=== PATIENT | female | born 1950 | race Caucasian/White ===

== ENCOUNTER 2019-05-07 06:35 | Emergency (ER) | payer SELFPAY ==
[~2019-05-07] VITALS: Ht 157.5 cm; Wt 45.4 kg
--- OUTSIDE RECORDS SUMMARY | ~2019-05-07 | XMS | Clinical Summary ---
Demographics + + + | Address | [address] | | | [place] [address] | + + + | Home Phone | | + + + | Preferred Language | Unknown | + + + | Marital Status | Single | + + + | Oriental Orthodox Affiliation | CAT | + + + | Race | White | + + + | Ethnic Group | Not or | + + + Author + + + | Author | NON REVENUE LOCATIONS | + + + | Organization | NON REVENUE LOCATIONS | + + + | Address | Unknown | + + + | Phone | Unavailable | + + + Support + + + + + | Name | Relationship | Address | Phone | + + + + + | Esperanza Garcia | ECON | [address] | | | | | [place] [address] | | + + + + + | Alejandro Nance | ECON | Unknown | | + + + + + Care Team Providers + +------+ + | Care Refinery Process Engineer Name | Role | Phone | + +------+ + | Emmanuel Llanos MD | PCP | | + +------+ + Source Comments BETSY is fully live on both [facility] and [facility] Allergies Not on File Medications + + + +---------+------+------+-------+ | Medication | Sig | Dispensed | Refills | Star | End | Statu | | | | | | t | Date | s | | | | | | Date | | | + + + +---------+------+------+-------+ | methadone 10 mg | take 2 tablets by | | 0 | 07/1 | | Activ | | oral tablet | mouth every 6 hours | | | 6/20 | | e | | | if needed | | | 18 | | | + + + +---------+------+------+-------+ | oxyCODONE | take 1 tablet by | | 0 | 07/1 | | Activ | | (immediate release) | mouth every 6 hours | | | 1/20 | | e | | 15 mg oral tablet | if needed | | | 18 | | | + + + +---------+------+------+-------+ | HYDROmorphone 4 mg | take 1/2 twice a day | | 0 | 07/1 | | Activ | | oral tablet | IN LATE AFTERNOON | | | 1/20 | | e | | | | | | 18 | | | + + + +---------+------+------+-------+ | atorvastatin 40 mg | Take by mouth. | | 0 | | | Activ | | oral tablet | | | | | | e | + + + +---------+------+------+-------+ | gabapentin 800 mg | Take by mouth. | | 0 | | | Activ | | oral tablet | | | | | | e | + + + +---------+------+------+-------+ | montelukast 10 mg | Take by mouth. | | 0 | | | Activ | | oral tablet | | | | | | e | + + + +---------+------+------+-------+ | Nebivolol 10 mg | Take by mouth. | | 0 | | | Activ | | oral tablet | | | | | | e | + + + +---------+------+------+-------+ | nitroglycerin 0.4 | Place under tongue. | | 0 | | | Activ | | mg sublingual | | | | | | e | | tablet, sublingual | | | | | | | + + + +---------+------+------+-------+ | albuterol 90 | Inhale by mouth. | | 0 | | | Activ | | mcg/actuation | | | | | | e | | inhalation HFA | | | | | | | | aerosol inhaler | | | | | | | + + + +---------+------+------+-------+ Active Problems Not on file Social History + +-------+ +--------+------+ | Tobacco Use | Types | Packs/Day | Years | Date | | | | | Used | | + +-------+ +--------+------+ | Former Smoker | | | | | + +-------+ +--------+------+ + +---+---+---+ | Smokeless Tobacco: | | | | | Never Used | | | | + +---+---+---+ + + + | Sex Assigned at | Date Recorded | | | | + + + | Not on file | | + + + + + + + | Job Start Date | Occupation | Industry | + + + + | Not on file | Not on file | Not on file | + + + + + + + + | Travel History | Travel Start | Travel End | + + + + + + | No recent travel history available. | + + Last Filed Vital Signs + + + + + | Vital Sign | Reading | Time Taken | Comments | + + + + + | Blood Pressure | - | - | | + + + + + | Pulse | - | - | | + + + + + | Temperature | - | - | | + + + + + | Respiratory Rate | - | - | | + + + + + | Oxygen Saturation | - | - | | + + + + + | Inhaled Oxygen | - | - | | | Concentration | | | | + + + + + | Weight | 46.3 kg (102 lb) | 01/26/2018 1:41 PM | | | | | PDT | | + + + + + | Height | 158.8 cm (5' 2.5") | 01/26/2018 1:41 PM | | | | | PDT | | + + + + + | Body Mass Index | 18.36 | 01/26/2018 1:41 PM | | | | | PDT | | + + + + + Plan of Treatment + + + + + | Health Maintenance | Due Date | Last Done | Comments | + + + + + | Pneumococcal | | 04/17/2015 | | | vaccination (2 of 2 | 7 | | | | - PPSV23) | | | | + + + + + | Influenza (Flu) | | | | | vaccination (#1) | 9 | | | + + + + + Results Not on filefrom Last 3 Months
--- OUTSIDE RECORDS SUMMARY | ~2019-05-07 | XMS | Clinical Summary ---
Demographics + + + | Address | [address] | | | [place] [address] | + + + | Home Phone | | + + + | Preferred Language | Unknown | + + + | Marital Status | Unknown | + + + | Christian Affiliation | Unknown | + + + | Race | Unknown | + + + | Ethnic Group | Unknown | + + + Author + + + | Author | [facility] | | | and [place] | + + + | Organization | [facility] | | | and [place] | + + + | Address | Unknown | + + + | Phone | Unavailable | + + + Support + + +---------+ + | Name | Relationship | Address | Phone | + + +---------+ + | Konstantin Edwards | ECON | Unknown | | + + +---------+ + Care Team Providers + +------+ + | Care Area Director Of Home Health Sales Name | Role | Phone | + +------+ + | Davian Strong DO | PCP | | + +------+ + Allergies + + + + + + | Active Allergy | Reactions | Severity | Noted | Comments | | | | | Date | | + + + + + + | Penicillins | | High | 03/26/20 | | | | | | 18 | | + + + + + + | Sulfa Antibiotics | | High | 03/26/20 | | | | | | 18 | | + + + + + + Medications + + + +---------+------+------+-------+ | Medication | Sig | Dispensed | Refills | Star | End | Statu | | | | | | t | Date | s | | | | | | Date | | | + + + +---------+------+------+-------+ | guanFACINE (TENEX) | Take 1 mg by mouth | | 0 | | | Activ | | 1 mg tablet | nightly. | | | | | e | + + + +---------+------+------+-------+ | spironolactone | Take 25 mg by mouth | | 0 | | | Activ | | (ALDACTONE) 25 mg | Daily. | | | | | e | | tablet | | | | | | | + + + +---------+------+------+-------+ | | Take 1 tablet by | | 0 | | | Activ | | irbesartan-hydrochlo | mouth Daily. | | | | | e | | rothiazide (AVALIDE) | | | | | | | | 300-12.5 MG per | | | | | | | | tablet | | | | | | | + + + +---------+------+------+-------+ | nebivolol | Take 10 mg by mouth | | 0 | | | Activ | | (BYSTOLIC) 10 mg | Daily. | | | | | e | | tablet | | | | | | | + + + +---------+------+------+-------+ | verapamil (CALAN | Take 240 mg by mouth | | 0 | | | Activ | | SR) 240 mg SR tablet | 2 times daily. | | | | | e | + + + +---------+------+------+-------+ | sucralfate | Take 1 g by mouth | | 0 | | | Activ | | (CARAFATE) 1 g | nightly. | | | | | e | | tablet | | | | | | | + + + +---------+------+------+-------+ | colestipol | Take 1 g by mouth 2 | | 0 | | | Activ | | (COLESTID) 1 g | times daily. | | | | | e | | tablet | | | | | | | + + + +---------+------+------+-------+ | estradiol | Place 1 patch onto | | 0 | | | Activ | | (CLIMARA) 0.05 mg/24 | the skin Once a | | | | | e | | hr | week. | | | | | | + + + +---------+------+------+-------+ | atorvaSTATin | Take 40 mg by mouth | | 0 | | | Activ | | (LIPITOR) 40 mg | nightly. | | | | | e | | tablet | | | | | | | + + + +---------+------+------+-------+ | gabapentin | Take 800 mg by mouth | | 0 | | | Activ | | (NEURONTIN) 800 MG | EVERY 4 TO 6 HOURS | | | | | e | | tablet | NEEDED. | | | | | | + + + +---------+------+------+-------+ | nitroglycerin | Place 0.4 mg under | | 0 | | | Activ | | (NITROSTAT) 0.4 mg | the tongue every 5 | | | | | e | | SL tablet | minutes as needed | | | | | | | | for Chest pain. | | | | | | + + + +---------+------+------+-------+ | Albuterol Sulfate | Inhale 200 puffs | | 0 | | | Activ | | (VENTOLIN HFA IN) | into the lungs every | | | | | e | | | 4 hours as needed. | | | | | | + + + +---------+------+------+-------+ | aspirin 81 mg EC | Take 81 mg by mouth | | 0 | | | Activ | | tablet | Daily. | | | | | e | + + + +---------+------+------+-------+ | CALCIUM CITRATE PO | Take by mouth. | | 0 | | | Activ | | | | | | | | e | + + + +---------+------+------+-------+ | aluminum | Take 15 mLs by mouth | | 0 | | | Activ | | hydroxide-magnesium | 4 times daily as | | | | | e | | carbonate (GAVISCON) | needed. | | | | | | | 95-358 MG/15ML SUSP | | | | | | | + + + +---------+------+------+-------+ | cholecalciferol | Take 5,000 Units by | | 0 | | | Activ | | (VITAMIN D-3) 5000 | mouth Daily. | | | | | e | | units TABS | | | | | | | + + + +---------+------+------+-------+ | naloxone (NARCAN) | 1 spray by Nasal | 2 each | 1 | 05/1 | | Activ | | 4 mg/nasal | route as needed for | | | 6/20 | | e | | sprayIndications: | Decreased | | | 19 | | | | long-term current | Responsiveness (May | | | | | | | use of opiate | repeat with second | | | | | | | analgesic | device into other | | | | | | | | nostril after 2 | | | | | | | | minutes). | | | | | | + + + +---------+------+------+-------+ | oxyCODONE | Take 1 tablet by | 56 | 0 | 08/2 | | Activ | | (ROXICODONE) 15 mg | mouth every 6 hours | tablet | | 6/20 | | e | | immediate release | as needed for Pain. | | | 19 | | | | tabletIndications: | | | | | | | | Failed back | | | | | | | | syndrome, lumbar, | | | | | | | | Failed neck | | | | | | | | syndrome, bed bug exterminator | | | | | | | | current use of | | | | | | | | opiate analgesic | | | | | | | + + + +---------+------+------+-------+ | methadone 10 mg | Take 2 tablets by | 112 | 0 | 08/2 | | Activ | | tabletIndications: | mouth 4 times daily. | tablet | | 6/20 | | e | | Failed back | | | | 19 | | | | syndrome, lumbar, | | | | | | | | Failed neck | | | | | | | | syndrome, long-term | | | | | | | | current use of | | | | | | | | opiate analgesic | | | | | | | + + + +---------+------+------+-------+ Active Problems + + | Patient Care Coordination Note | + + | 01/13/2019: Needs UDS prior to next refill. Opioid use agreement through Dr. 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/2018 | | stable angina pectoris | | + + + | Failed neck syndrome | 03/26/2018 | + + + | long-term current use of opiate analgesic | 03/26/2018 | + + + | Mixed hyperlipidemia | 03/26/2018 | + + + | History of tobacco use | 03/26/2018 | + + + | Underweight due to inadequate caloric intake | 03/26/2018 | + + + Encounters +--------+ + + + + | Date | Type | Specialty | Care Team | Description | +--------+ + + + + | 02/28/ | Office | Primary Care | Lea Mack | Failed back | | 2018 | Visit | | MD Tram | syndrome, lumbar; | | | | | | Failed neck | | | | | | syndrome; long-term | | | | | | current use of | | | | | | opiate analgesic | +--------+ + + + + | 02/24/ | Orders Only | Primary Care | Lea Mack | | | 2018 | | | MD Tram | | +--------+ + + + + | 02/16/ | Telephone | Primary Care | Davian Strong, | Appointment (apt | | 2018 | | | DO | with Dr mack) | +--------+ + + + + | 02/16/ | Telephone | Primary Care | Davian Strong, | | | 2018 | | | DO | | +--------+ + + + + | 02/14/ | Refill | Primary Care | Davian Strong, | Medication Refill; | | 2018 | | | DO | Medication Refill; | | | | | | Medication Refill | +--------+ + + + + from Last 3 Months Immunizations + + + + | Name | Dates Previously Given | Next Due | + + + + | HEP A/HEP B, 3 DOSE | 07/11/2003 | | | (ADULT) | | | + + + + | PNEUMOCOCCAL | 04/17/2015 | | | CONJUGATE 13-VALENT | | | | (PCV13) | | | + + + + Social History + + + +--------+ + | Tobacco Use | Types | Packs/Day | Years | Date | | | | | Used | | + + + +--------+ + | Former Smoker | Cigarettes | | | Quit: 2017 | + + + +--------+ + + +---+---+---+ | Smokeless Tobacco: | | | | | Never Used | | | | + +---+---+---+ + + | Tobacco Cessation: Counseling Given: No | | Comments: couple a day | + + + + +---------+ + | Alcohol Use | Drinks/We | oz/Week | Comments | | | ek | | | + + +---------+ + | No | | | | + + +---------+ + + + + | Sex Assigned at [...] Filed Vital Signs + + + + | Vital Sign | Reading | Time Taken | + + + + | Blood Pressure | 162/64 | 02/28/20191517 PDT | + + + + | Pulse | 90 | 02/28/20191517 PDT | + + + + | Temperature | 37.1 C (98.7 F) | 11/18/2018 1006 PDT | + + + + | Respiratory Rate | 16 | 02/28/20191517 PDT | + + + + | Oxygen Saturation | 100% | 02/28/20191517 PDT | + + + + | Inhaled Oxygen | - | - | | Concentration | | | + + + + | Weight | 45.9 kg (101 lb 3.2 | 02/28/20191517 PDT | | | oz) | | + + + + | Height | 154.9 cm (5' 1") | 12/17/2018931 PDT | + + + + | Body Mass Index | 19.12 | 12/17/2018931 PDT | + + + + Plan of Treatment + + + + + | Health Maintenance | Due Date | Last Done | Comments | + + + + + | Hepatitis C | | | | | Screening | 2 | | | + + + + + | Vaccine: | | | | | Dtap/Tdap/Td (1 - | 1 | | | | Tdap) | | | | + + + + + | Colorectal Cancer | | | | | Screening | 2 | | | | (Colonoscopy) | | | | + + + + + | Vaccine: Zoster (1 | | | | | of 2) | 2 | | | + + + + + | Breast Cancer | | | | | Screening | 7 | | | + + + + + | Vaccine: | | 04/17/2015 | | | Pneumococcal 65+ | 7 | | | | Low/Medium Risk (2 | | | | | of 2 - PPSV23) | | | | + + + + + | Adult Annual | | | | | Wellness Visit | 8 | | | + + + + + | Vaccine: Influenza | | | | | (#1) | 9 | | | + + + + + | Primary Care | | 02/28/2019, 12/17/2018, | | | Outreach (Intense | 9 | 11/18/2018, Additional history | | | Risk) | | exists | | + + + + + | Urine Drug Screening | | 02/15/2019, 11/18/2018 | | | | 0 | | | + + + + + Procedures + +--------+ + + + | Procedure Name | Priori | Date/Time | Associated Diagnosis | Comments | | | ty | | | | + +--------+ + + + | MICROALBUMIN/CREATIN | Routin | 02/15/2019 | Essential | Results for this | | INE RATIO, URINE | e | 11:38 PDT | hypertension On | procedure are in the | | TEST | | | angiotensin receptor | results section. | | | | | blockers (ARB) | | + +--------+ + + + | DRUGS OF ABUSE, | Routin | 02/15/2019 | long-term current | Results for this | | SCREEN, URINE | e | 11:33 PDT | use of opiate | procedure are in the | | | | | analgesic | results section. | + +--------+ + + + | URINALYSIS | Routin | 02/15/2019 | Essential | Results for this | | | e | 11:33 PDT | hypertension | procedure are in the | | | | | Atherosclerosis of | results section. | | | | | [place] coronary | | | | | | artery of [place] | | | | | | heart with stable | | | | | | angina pectoris | | | | | | ([facility]) On potassium | | | | | | sparing diuretic | | | | | | therapy On | | | | | | potassium wasting | | | | | | diuretic therapy | | + +--------+ + + + from Last 3 Months Results Microalbumin/Creatinine Ratio, Urine (02/15/2019 11:38 PDT) + + + + + + | Component | Value | Ref Range | Performed | Pathologist | | | | | At | Signature | + + + + + + | Microalbumi | 42.5 (H) | 0 - 30 mg/L | [facility] | | | n, Urine | | | [facility] | | [facility] | | | | | [facility] | | | | | [facility] | | | | | [facility] | | + + + + + + | Creatinine, | 68 | 20 - 370 mg/dL | [facility] | | | Urine, | | | [facility] | | | Random | | | [facility] | | | | | [facility] | | | | | | [facility] | | | | | | [facility] | | + + + + + + | Microalbumi | 63 (H) | 0 - 17 mg/g | [facility] | | | n/Creatinin | | | [facility] | | | ratio | | | [facility] | | | | | [facility] | | | | | [facility] | | | | | | [facility] | | + + + + + + + + | Specimen | + + | Urine | + + + + + + + | Performing | Address | City/State/Zipcode | Phone Number | | Organization | | | | + + + + + | [facility] | [address] | [place] [address] | [phone] | | [facility] | | | | [facility] | | | | + + + + + Drugs of Abuse, Screen, Urine (02/15/2019 11:33 PDT) + + + + + + | Component | Value | Ref Range | Performed | Pathologist | | | | | At | Signature | + + + + + + | Cannabinoid | Negative | Negative | [facility] | | | s Screen, | | | [facility] | | | Urine | | | [facility] | | | | | | [facility] | | | | | | [facility] | | | | | | [facility] | | + + + + + + | Cocaine | Negative | Negative | [facility] | | | Screen, | | | [facility] | | | Urine | | | [facility] | | | | | | [facility] | | | | | | [facility] | | | | | | [facility] | | + + + + + + | Phencyclidi | Negative | Negative | [facility] | | | ne Screen, | | | [facility] | | | Urine | | | [facility] | | | | | | [facility] | | | | | | [facility] | | | | | | [facility] | | + + + + + + | Methampheta | Negative | Negative | [facility] | | | mine | | | [facility] | | | Screen, | | | [facility] | | | Urine | | | [facility] | | | | | | [facility] | | | | | | [facility] | | + + + + + + | Opiates | Positive (A) | Negative | [facility] | | | Screen, | | | [facility] | | | Urine | | | [facility] | | | | | | [facility] | | | | | | [facility] | | | | | | [facility] | | + + + + + + | Amphetamine | Negative | Negative | [facility] | | | Screen, | | | [facility] | | | Urine | | | [facility] | | | | | | [facility] | | | | | | [facility] | | | | | | [facility] | | + + + + + + | Benzodiazep | Negative | Negative | [facility] | | | quiana | | | [facility] | | | Screen, | | | [facility] | | | Urine | | | [facility] | | | | | | [facility] | | | | | | [facility] | | + + + + + + | Tricyclic | Negative | Negative | [facility] | | | Antidepress | | | [facility] | | | ants | | | [facility] | | | Screen, | | | [facility] | | | Urine | | | MED[facility] | | | | | | [facility] | | + + + + + + | Methadone | Positive (A) | Negative | [facility] | | | Screen, | | | [facility] | | | Urine | | | [facility] | | | | | | [facility] | | | | | | [facility] | | | | | | [facility] | | + + + + + + | Barbiturate | Negative | Negative | [facility] | | | s Screen, | | | [facility] | | | Urine | | | [facility] | | | | | | [facility] | | | | | | [facility] | | | | | | [facility] | | + + + + + + | Oxycodone | Positive (A) | Negative | [facility] | | | Screen, | | | [facility] | | | Urine | | | [facility] | | | | | | [facility] | | | | | | [facility] | | | | | | [facility] | | + + + + + + | Propoxyphen | Negative | Negative | [facility] | | | e Screen, | | | [facility] | | | Urine | | | [facility] | | | | | | [facility] | | | | | [facility] | | | | | | [facility] | | + + + + + + | Buprenorphi | Negative | Negative | [facility] | | | ne Screen, | | | [facility] | | | Urine | | | [facility] | | | | | [facility] | | | | | [facility] | | | | | | [facility] | | + + + + + + + + | Specimen | + + | Urine | + + + + + | Narrative | Performed At | + + + | Qualitative drug screen intended for emergency medical use only. Not | [facility] | | intended for legal purposes. Chain of Custody not maintained. | [facility]OS[facility]ITAL | | Confirmation of Positive results must be ordered by the attending | [facility] | | physician. Fpkt-fjz-afxclmm drugs may cross react with some methods. | [facility] | | Call the laboratory if further information is needed. | LAB | | AMPHETAMINE 500 ng/mL | | | BARBITURATES 200 ng/mL | | | BENZODIAZEPINES 150 ng/mL | | | BUPRENORPHINE 10 ng/mL | | | COCAINE 150 ng/mL | | | METHAMPHETAMINES 500 ng/mL | | | METHADONE 200 ng/mL | | | OPIATES 100 ng/mL | | | OXYCODONE 100 ng/mL | | | PHENCYCLIDINE 25 ng/mL | | | PROPOXYPHENE 300 ng/mL | | | CANNABINOIDS 50 ng/mL TRICYCLIC | | | ANTIDEPRES 300 ng/mL | | + + + + + + + + | Performing | Address | City/State/Zipcode | Phone Number | | Organization | | | | + + + + + | [facility] | [address] | [place] [address] | [phone] | | [facility] | | | | | [facility] | | | | + + + + + Urinalysis (02/15/2019 11:33 PDT) + + + + + + | Component | Value | Ref Range | Performed | Pathologist | | | | | At | Signature | + + + + + + | Color | Yellow | Pale Yellow, | [facility] | | | | | Yellow | [facility] | | | | [facility] | | | | | [facility] | | | | [facility] | | | | | | [facility] | | + + + + + + | Clarity | Clear | Clear | [facility] | | | | | | [facility] | | | | [facility] | | | | | [facility] | | | | | | [facility] | | | | | | [facility] | | + + + + + + | pH, Urine | 6.0 | 5.0 - 7.0 | [facility] | | | | | | [facility] | | | | [facility] | | | | | [facility] | | | | [facility] | | | | | | [facility] | | + + + + + + | Specific | 1.010 | 1.003 - 1.030 | [facility] | | | [place] | | | [facility] | | | | [facility] | | | | | [facility] | | | | [facility] | | | | | | [facility] | | + + + + + + | Protein, | 15 mg/dL (A) | Negative | [facility] | | | Urine | | | [facility] | | | | [facility] | | | | | | [facility] | | | | | [facility] | | | | | | [facility] | | + + + + + + | Blood, | 250 josefa/uL (A) | Negative | [facility] | | | Urine | | | [facility] | | | | | [facility] | | | | | | [facility] | | | | | [facility] | | | | | | [facility] | | + + + + + + | Glucose, | Normal | Normal | [facility] | | | Urine | | | [facility] | | | | | | [facility] | | | | | | [facility] | | | | | | [facility] | | | | | | [facility] | | + + + + + + | Ketones, | Negative | Negative | [facility] | | | Urine | | | [facility] | | | | | [facility] | | | | | | [facility] | | | | | | [facility] | | | | | | [facility] | | + + + + + + | Bilirubin, | Negative | Negative | [facility] | | | Urine | | | [facility] | | | | [facility] | | | | | | [facility] | | | | | | [facility] | | | | | | [facility] | | + + + + + + | Nitrite, | Negative | Negative | [facility] | | | Urine | | | [facility] | | | | [facility] | | | | | [facility] | | | | | [facility] | | | | | | [facility] | | + + + + + + | Leukocyte | Negative | Negative | [facility] | | | Esterase, | | | [facility] | | | Urine | | | [facility] | | | | | | [facility] | | | | | | [facility] | | | | | | [facility] | | + + + + + + | Urobilinoge | Normal | 0-1.0 mg/dL | [facility] | | | n, Urine | | | [facility] | | | | [facility] | | | | | | [facility] | | | | | | [facility] | | | | | | [facility] | | + + + + + + + + | Specimen | + + | Urine | + + + + + + + | Performing | Address | City/State/Zipcode | Phone Number | | Organization | | | | + + + + + | [facility] | [address] | [place] [address] | [phone] | | [facility] | | | | | [facility] | | | | + + + + + from Last 3 Months Advance Directives Patient has advance care planning documents on file. For more information, please contact:[facility] and [facility] [place] [address]
--- OUTSIDE RECORDS SUMMARY | ~2019-05-07 | XMS | Encounter Summary ---
Demographics + + + | Address | [address] | | | [place] [address] | + + + | Home Phone | | + + + | Preferred Language | Unknown | + + + | Marital Status | Unknown | + + + | Oriental Orthodox Affiliation | Unknown | + + + | Race | Unknown | + + + | Ethnic Group | Unknown | + + + Author + + + | Author | [facility] | | | and [place] | + + + | Organization | [facility] | | | and [...] Team Providers + +------+ + | Care Senior Gl Accountant Name | Role | Phone | + +------+ + | Davian Strong DO | PCP | | + +------+ + Encounter Details +--------+ + + + + | Date | Type | Department | Care Team | Description | +--------+ + + + + | 02/24/ | Orders Only | [facility] | Lea Mack | | | 2019 | | [facility] | [address] | | | | | [facility] [address] | [facility] [facility], | | | | | [facility], | [place] [address] | | | | | [place] [address] | [phone] | | | | | [phone] | | | +--------+ + + + + Social History + [...] | | + +---+---+---+ + + | Comments: couple a day | + [...] recent travel history available. | + + documented as of this encounter Plan of Treatment Not on filedocumented as of this encounter Visit Diagnoses Not on filedocumented in this encounter"
--- OUTSIDE RECORDS SUMMARY | ~2019-05-07 | XMS | Encounter Summary ---
Demographics + + + | Address | [address] | | | [place] [address] | + + + | Home Phone | | + + + | Preferred Language | Unknown | + + + | Marital Status | Unknown | + + + | Presybeterian Affiliation | Unknown | + + + | Race | Unknown | + + + | Ethnic Group | Unknown | + + + Author + + + | Author | [facility] | | | and [place] | + + + | Organization | [facility] | | | and [...] Team Providers + +------+ + | Care Electrical Power Engineer Name | Role | Phone | + +------+ + | Davian Strong DO | PCP | | + +------+ + Encounter Details +--------+ + + + + | Date | Type | Department | Care Team | Description | +--------+ + + + + | 02/16/ | Telephone | [facility] | Davian Strong, | | | 2019 | | [facility] | DO [address] | | | | | [facility] [address] | [facility], [place] | | | | | [address] [place], | [address] | | | | | [place] [address] | [phone] | | | | | [phone] | | | +--------+ + + + [...]
--- OUTSIDE RECORDS SUMMARY | ~2019-05-07 | XMS | Encounter Summary ---
Demographics + + + | Address | [address] | | | [place] [address] | + + + | Home Phone | | + + + | Preferred Language | Unknown | + + + | Marital Status | Single | + + + | Pentecostalism Affiliation | CAT | + + + | Race | White | + + + | Ethnic Group | Not or | + + + Author + + + | Author | [facility] | + + + | Organization | [facility] | + + + | Address | Unknown | + + + | Phone | Unavailable | + + + Support + + + + + | Name | Relationship | Address | Phone | + + + + + | Esperanza Garcia | ECON | [address] | | | | | [place] [address] | | + + + + + | Alejandro Nance | ECON | Unknown | | + + + + + Care Team Providers + +------+ + | Care Chopping Machine Operator Name | Role | Phone | + +------+ + | Emmanuel Llanos MD | PCP | | + +------+ + Reason for Referral Consult to [place] (Routine) +--------+--------+ + + + + | Status | Reason | Specialty | Diagnoses / | Referred By | Referred To | | | | | Procedures | Contact | Contact | +--------+--------+ + + + + | Closed | | Spine | Diagnoses | Hiratzka, | Hiratzka, | | | | | Cervical | Bryan Guzman MD | Bryan Guzman MD | | | | | myelopathy | [address] | [address] | | | | | (HCC) | Clint | [address] | | | | | Spinal | [address] | [address] [place], | | | | | stenosis, | [place], [place] | [place] | | | | | cervical | [address] | [address] | | | | | region | Phone: | Phone: | | | | | Procedures | [phone] | [phone] | | | | | REQUEST TO | Fax: | Fax: | | | | | SURGERY | [phone] | [phone] | | | | | GAMING COMMISSIONER | | | | | | | NH NECK | | | | | | | SPINE | | | | | | | FUSE&REM | | | | | | | ADDL NH | | | | | | | SPIN BONE | | | | | | | ALLOGRFT | | | | | | | STRUCTURAL | | | | | | | NH INSERT | | | | | | | VERT FIX | | | | | | | DEV,ANT,2-3 | | | | | | | SGMTS | | | +--------+--------+ + + + + Reason for Visit + + + | Reason | Comments | + + + | New patient | | | consultation | | + + + Intake Referral (Routine) +--------+--------+ + + + + | Status | Reason | Specialty | Diagnoses / | Referred By | Referred To | | | | | Procedures | Contact | Contact | +--------+--------+ + + + + | Closed | | Spine | Diagnoses | Micanopy, | Ehsan, | | | | | Spinal | Emmanuel Brannon | ADAMARIS Hodges | | | | | instabilitie | MD Jaspal | [address] | | | | | s, cervical | [address] | Ave | | | | | region | [place] | [place], [place] | | | | | | [facility] | [address] | | | | | | [address] | Phone: | | | | | | [address] | [phone] | | | | | | [address] | Fax: | | | | | | [place], | [phone] | | | | | | [place] [address] | | | | | | | Phone: | | | | | | | [phone] | | | | | | | Fax: | | | | | | | [phone] | | +--------+--------+ + + + + Encounter Details +--------+---------+ + + + | Date | Type | Department | Care Team | Description | +--------+---------+ + + + | 01/26/ | Office | Orthopaedics at | Bryan Stokes, | Cervical myelopathy | | 2018 | Visit | [facility] [address] | [address] | ([facility]) (Primary Dx); | | | | Ave Mail[address]: [address] | [address] | Neck pain | | | | [facility] | [place], [place] | | | | | and Healing, | [address] | | | | | [facility] | [phone] | | | | | Floor [place], [place] | | | | | | [address] | | | | | | [phone] | | | +--------+---------+ + + + Social History + +-------+ +--------+------+ | Tobacco [...] + + documented as of this encounter Last Filed Vital Signs + + + [...] | | + + + + + documented in this encounter Progress Notes Bryan Stokes MD - 01/26/2018 2:30 PM PDTI performed an independent history and physi no examination of the patient, reviewed the appropriate imaging and discussed his managemen t with the orthopaedics fellow. I reviewed the fellow's note and agree with the findings and plan of care. Bryan Stokes MD Dog Food Shredder Operator - Spine Surgery [facility] Department of Orthopaedics & Rehabilitation Andrea Maldonado DO - 01/26/2018 2:30 PM PDT Referral: Emmanuel Llanos Jr., MD CC: neck pain, back pain, arm and leg pain HPI: Stefanie Dennis is a 67 y.o. female who has a known history of chronic low back and neck pain after multiple spinal surgeries. 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 Pain is described as being 50% Back and Neck an d 50% Arm/leg. She also hs right leg pain pain that radiates down the right posterior thig h and lateral leg. They improve with nothing. Longer walking makes them worse. There is c hronic and worsening numbness/tingling/weakness. She reports no fevers, chills, or unexplained weight loss. no loss of bowel or bladder con trol. worsening balance problems, There is new and worsening clumsiness or problems with ma nipulating fine objects. Prior treatment has included multiple cervical spine surgeries. Prior spine surgery includes multiple cervical spine surgeries C3-6 posterior spinal instru mented fusion L4/5 and L5/S1 posterior lumbar interbody fusion. Stefanie Dennis is currently taking the following medications for her symptoms: 1) Dilaudid 2) Oxycodone 3) Methadone. PMH: includes No past medical history on file. Please see the intake form which I have reviewed for full details. PSH: Please see the intake form which I have reviewed for full details. Medications: Current Outpatient Prescriptions: albuterol 90 mcg/actuation inhalation HFA ae rosol inhaler, Inhale by mouth., Disp: , Rfl: atorvastatin 40 mg oral tablet, Take by mouth., Disp: , Rfl: gabapentin 800 mg oral tablet, Take by mouth., Disp: , Rfl: HYDROmorphone 4 mg oral tablet, take 1/2 twice a day IN LATE AFTERNOON, Disp: , Rfl: 0 methadone 10 mg oral tablet, take 2 tablets by mouth every 6 hours if needed, Disp: , Rfl: 0 montelukast 10 mg oral tablet, Take by mouth., Disp: , Rfl: Nebivolol 10 mg oral tablet, Take by mouth., Disp: , Rfl: nitroglycerin 0.4 mg sublingual tablet, sublingual, Place under tongue., Disp: , Rfl: oxyCODONE (immediate release) 15 mg oral tablet, take 1 tablet by mouth every 6 hours if ne eded, Disp: , Rfl: 0 Allergies: Not on File Social Hx: Social History Social History Marital status: Single Spouse name: N/A Number of children: N/A Years of education: N/A Social History Main Topics Smoking status: Former Smoker Smokeless tobacco: Never Used Alcohol use Not on file Drug use: Unknown Sexual activity: Not on file Other Topics Concern Not on file Social History Narrative No narrative on file Family Hx: I reviewed and noncontributory. ROS A 12 -point review of systems was performed and is negative with the exception of those lis sadiq in the HPI Exam: Alert and Oriented x 3 General: The patient is a well-formed, well nourished individual in no acute distress who appears of stated age. Affect and mood are normal. Patient is normocephalic. Peripheral p ulses are normal. Breathing is normal. Abdomen is soft, non-tender. Skin is normal color, temperature. No significant lymphedema. Station and gait are antalgic and stooped forward . Vital Signs: As per intake form. Musculoskeletal: Examination of the cervical spine demonstrates no skin changes or areas o f induration. There are no masses or surgical incisions. Flexibility is 40 to flexion, 40 to extension, 15 to lateral bending, and 30 to axial rotation. Spurlings and Lhermittes maximo ts are negative. Nagel and Neer tests are negative for impingement. Motor Score L R C5 (Elbow Flex) 5 5 C6 (Wrist Ext) 5 5 C7 (Elbow Ext) 5 5 C8 (FDP) 5 5 T1 (Pinky Abd) 5 5 L2 (Hip Flex) 4 4 L3 (Knee Ext) 5 5 L4 (Ankle DF) 4 4 L5 (EHL) 4 4 S1 (Ankle PF) 4 4 Tendon Reflexes L R C5-6 (Biceps) 3 3 C6 (Brachioradialis) 3 3 C7-8 (Triceps) 3 3 L3-4 (Knee Jerk) 3 3 S1-2 (Achilles) 3 3 Pathologic Reflexes L R Bass no no Babinski no no Clonus no no Sensory Light Touch 0= Absent 1= decreased 2= normal Location L R C2 (Occiput) 2 2 C3 (Clavicle) 2 2 C4 (Shoulder) 2 2 C5 (Lat Elbow) 2 1 C6 (Thumb) 2 1 C7 (Long Finger) 2 1 C8 (Sm Finger) 2 1 T1 (Med Elbow) 2 1 T2 (Axilla) T4 (Nipple) T10 (Umbilicus) T12 (Inguinal Lig) L2 (Med. Thigh) 2 2 L3 (Med. Knee) 2 2 L4 (Med. Mall.) 2 2 L5 (Mid. Toe) 2 1 S1 (Lat. Heel) 2 2 + Romberg Unable to perform tandem heel toe gait Radiographs: X-Rays dated 01/26/2018 show no acute fractures or dislocations. There is previous C3-6 ant erior cervical fusion. C3-[address]/MRI of the cervical and lumbar spine Cervical spine MRI - (limited by sagittal T2 reconstruction) demonstrates well healed C3-6 anterior spinal fusion. There is C2/3 disc herniation with severe spinal stenosis Lumbar spine MRI and CT - demonstrates pseudoarthrosis of L4/5 and L5/S1. There is sever Ri ght L5 foraminal stenosis. Impression: Stefanie Dennis is a 67 y.o. 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 - Instructed her to have her nephew stop smoking around her as well Andrea Garrison DO Orthopaedic Spine Fellow documented in this encounter Plan of Treatment Not on filedocumented as of this encounter Results X-RAY SPINE CERV 4 VIEWS (01/26/2018 1:20 PM PDT) + + | Specimen | + + | | + + + + + | Narrative | Performed At | + + + | EXAM: SPINE CERV 4 VIEWS HISTORY: eval neck pain COMPARISON: | [facility] | | Outside radiographs and MRI 12/05/2016 FINDINGS: There is solid | RADIOLOGY VOICE | | osseous fusion between the vertebral bodies of C3, C4 and C5 with | RECOGNITION 2 | | narrowing and calcification at C5-C6. There is osteopenia. Unfused | | | vertebral body heights are maintained with no fracture or focal | | | destruction. Mild C6-C7 disc space narrowing is observed. Trace C2-C3 | | | anterolisthesis is present, which does not changed with flexion and | | | extension. The C2-C3 disc space is maintained. Narrowing is observed | | | of the lower cervical facet joints as before likely secondary to the | | | anterior column fusion. The C1-C2 and craniocervical relationships are | | | normal. Prevertebral soft tissues are within normal limits. | | | IMPRESSION: Unchanged anterior osseous fusion from C3 to C5 with | | | C5-C6 narrowing and calcification. Mild C6-C7 degenerative disc | | | disease. No dynamic instability. Trace static C2-C3 | | | anterolisthesis. I have personally reviewed the images and, if | | | necessary, edited the report. I agree with the report as now | | | presented. Final signature: Marisela Sánchez MD 01/26/2018 | | | 1:30 PM Preliminary: Marisela Sánchez MD Dictation | | | initiated: Marisela Sánchez MD 01/26/2018 1:24 PM | | + + + + + | Procedure Note | + + | Service Account, Radiant Res In Interface - 01/26/2018 1:31 PM PDT EXAM: SPINE CERV | | 4 VIEWS HISTORY: eval neck pain COMPARISON: Outside radiographs and MRI 12/05/2016 | | FINDINGS: There is solid osseous fusion between the vertebral bodies of C3, C4 and C5 | | with narrowing and calcification at C5-C6. There is osteopenia. Unfused vertebral body | | heights are maintained with no fracture or focal destruction. Mild C6-C7 disc space | | narrowing is observed. Trace C2-C3 anterolisthesis is present, which does not changed | | with flexion and extension. The C2-C3 disc space is maintained. Narrowing is observed of | | the lower cervical facet joints as before likely secondary to the anterior column | | fusion. The C1-C2 and craniocervical relationships are normal. Prevertebral soft tissues | | are within normal limits. IMPRESSION: Unchanged anterior osseous fusion from C3 to C5 | | with C5-C6 narrowing and calcification. Mild C6-C7 degenerative disc disease. No dynamic | | instability. Trace static C2-C3 anterolisthesis. I have personally reviewed the images | | and, if necessary, edited the report. I agree with the report as now presented. Final | | signature: Marisela Sánchez MD 01/26/2018 1:30 PM Preliminary: Marisela Sánchez MD | | Dictation initiated: Marisela Sánchez MD 01/26/2018 1:24 PM | | | |Mild C6-C7 degenerative disc disease. | | | |No dynamic instability. Trace static C2-C3 anterolisthesis. | | | |I have personally reviewed the images and, if necessary, edited the report. I agree with th e report as now presented. | | | |Final signature: Marisela Sánchez MD 01/26/2018 1:30 PM | |Preliminary: Marisela Sánchez MD | |Dictation initiated: Marisela Sánchez MD 01/26/2018 1:24 PM | + + + +---------+ + + | Performing | Address | City/State/Zipcode | Phone Number | | Organization | | | | + +---------+ + + | [facility] | | | | | VOICE RECOGNITION 2 | | | | + +---------+ + + documented in this encounter Visit Diagnoses + + | Diagnosis | + + | Cervical myelopathy (HCC) - Primary Cervical spondylosis with myelopathy | + + | Neck pain Cervicalgia | + + documented in this encounter
--- OUTSIDE RECORDS SUMMARY | ~2019-05-07 | XMS | Encounter Summary ---
Demographics + + + | Address | [address] | | | [place] [address] | + + + | Home Phone | | + + + | Preferred Language | Unknown | + + + | Marital Status | Unknown | + + + | Restorationism Affiliation | Unknown | + + + | Race | Unknown | + + + | Ethnic Group | Unknown | + + + Author + + + | Author | [facility] | | | and [place] | + + + | Organization | [facility] | | | [...] Team Providers + +------+ + | Care Peanut Picker Name | Role | Phone | + +------+ + | Davian Strong DO | PCP | | + +------+ + Reason for Visit + + + | Reason | Comments | + + + | Appointment | apt with Dr scott | + + + Encounter Details +--------+ + + + + | Date | Type | Department | Care Team | Description | +--------+ + + + + | 02/16/ | Telephone | [facility] | Davian Strong, | Appointment (apt | | 2019 | | [facility] | DO [address] | with Dr scott) | | | | MEDICAL [facility] [address] | [facility], [place] | | | | | [address] [facility], | [address] | | | | | [place] [address] | [phone] | | | | | [phone] | | | +--------+ + + + + Social History + + + +--------+ + | Tobacco Use | Types | Packs/Day | Years | Date | | | | | Used | | + + + +--------+ + | Former Smoker | Cigarettes | | | Quit: 2016 | + + + +--------+ + + [...]
--- OUTSIDE RECORDS SUMMARY | ~2019-05-07 | XMS | Clinical Summary ---
Demographics + + + | Address | [address] | | | [place] [address] | + + + | Home Phone | | + + + | Preferred Language | Unknown | + + + | Marital Status | | + + + | Denominational Affiliation | Unknown | + + + | Race | Unknown | + + + | Ethnic Group | Unknown | + + + Author + + + | Author | [facility] (Historical as of | | | 02-19-19) | + + + | Organization | [facility] (Historical as of | | | 02-19-19) | + + + | Address | Unknown | + + + | Phone | Unavailable | + + + Support + + +---------+ + | Name | Relationship | Address | Phone | + + +---------+ + | Alejandro Nance | ECON | Unknown | | + + +---------+ + Care Team Providers + +------+ + | Care Digital Advertising Analyst Name | Role | Phone | + +------+ + | Emmanuel Llanos MD | PP | | + +------+ + Allergies No Known Allergies Current Medications + + +-------+---------+------+------+-------+ | Prescription | Sig. | Disp. | Refills | Star | End | Statu | | | | | | t | Date | s | | | | | | Date | | | + + +-------+---------+------+------+-------+ | | Take 1 tablet by | | | | | Activ | | irbesartan-hydrochlo | mouth daily. | | | | | e | | rothiazide (AVALIDE) | | | | | | | | 300-12.5 MG per | | | | | | | | tablet | | | | | | | + + +-------+---------+------+------+-------+ | nebivolol | Take 10 mg by mouth | | | | | Activ | | (BYSTOLIC) 10 MG | daily. | | | | | e | | tablet | | | | | | | + + +-------+---------+------+------+-------+ | verapamil | Take 240 mg by mouth | | | | | Activ | | (CALAN-SR) 240 MG CR | nightly. | | | | | e | | tablet | | | | | | | + + +-------+---------+------+------+-------+ | sucralfate | Take 1 g by mouth 4 | | | | | Activ | | (CARAFATE) 1 g | (four) times daily. | | | | | e | | tablet | | | | | | | + + +-------+---------+------+------+-------+ | Colestipol HCl | Take by mouth. | | | | | Activ | | (COLESTID PO) | | | | | | e | + + +-------+---------+------+------+-------+ | estradiol | Place 1 patch onto | | | | | Activ | | (CLIMARA) 0.05 | the skin once a | | | | | e | | MG/24HR | week. | | | | | | + + +-------+---------+------+------+-------+ | atorvastatin | Take 40 mg by mouth | | | | | Activ | | (LIPITOR) 40 MG | nightly. | | | | | e | | tablet | | | | | | | + + +-------+---------+------+------+-------+ | gabapentin | Take 800 mg by mouth | | | | | Activ | | (NEURONTIN) 800 MG | 3 (three) times | | | | | e | | tablet | daily. Pt takes 800 | | | | | | | | mg BID | | | | | | + + +-------+---------+------+------+-------+ | nitroGLYCERIN | Place 0.4 mg under | | | | | Activ | | (NITROSTAT) 0.4 MG | the tongue every 5 | | | | | e | | SL tablet | (five) minutes as | | | | | | | | needed for Chest | | | | | | | | pain. | | | | | | + + +-------+---------+------+------+-------+ | montelukast | Take 10 mg by mouth | | | | | Activ | | (SINGULAIR) 10 MG | nightly. | | | | | e | | tablet | | | | | | | + + +-------+---------+------+------+-------+ | carisoprodol | Take 350 mg by mouth | | | | | Activ | | (SOMA) 350 MG tablet | 4 (four) times | | | | | e | | | daily as needed for | | | | | | | | Muscle spasms. 1 at | | | | | | | | bedtime | | | | | | + + +-------+---------+------+------+-------+ | HYDROmorphone | Take 2 mg by mouth | | | | | Activ | | (DILAUDID) 2 MG | every 3 (three) | | | | | e | | tablet | hours as needed for | | | | | | | | Pain. Pt states she | | | | | | | | only takes 1 bedtime | | | | | | + + +-------+---------+------+------+-------+ | methadone | Take 10 mg by mouth | | | | | Activ | | (DOLOPHINE) 10 MG | every 4 (four) hours | | | | | e | | tablet | as needed for Pain. | | | | | | | | 20 mg every 6-8 | | | | | | | | hours per pt | | | | | | + + +-------+---------+------+------+-------+ | methadone | Take 5 mg by mouth | | | | | Activ | | (DOLOPHINE) 5 MG | every 4 (four) hours | | | | | e | | tablet | as needed for Pain | | | | | | | | (as needed for pain, | | | | | | | | rescue). Pt states | | | | | | | | she only takes 1 | | | | | | | | tablet at bedtime | | | | | | + + +-------+---------+------+------+-------+ | albuterol | Inhale 2 puffs into | | | | | Activ | | (VENTOLIN HFA) 108 | the lungs every 4 | | | | | e | | (90 Base) MCG/ACT | (four) hours as | | | | | | | inhaler | needed for Wheezing. | | | | | | + + +-------+---------+------+------+-------+ | oxyCODONE | Take 15 mg by mouth | | | | | Activ | | (ROXICODONE) 15 MG | every 6 (six) hours | | | | | e | | immediate release | as needed for Pain. | | | | | | | tablet | | | | | | | + + +-------+---------+------+------+-------+ | aspirin 81 MG | Take 81 mg by mouth | | | | | Activ | | tablet | daily. | | | | | e | + + +-------+---------+------+------+-------+ | Calcium-Vitamin | Take by mouth. | | | | | Activ | | D-Vitamin K (CALCIUM | | | | | | e | | + D + K PO) | | | | | | | + + +-------+---------+------+------+-------+ | Alum Hydroxide-Mag | Take by mouth. | | | | | Activ | | Trisilicate | | | | | | e | | (Vels[employer]) 80-14.2 | | | | | | | | MG CHEW | | | | | | | + + +-------+---------+------+------+-------+ | cholecalciferol | Take 1,000 Units by | | | | | Activ | | (VITAMIN D-3) 1000 | mouth daily. | | | | | e | | units tablet | | | | | | | + + +-------+---------+------+------+-------+ Active Problems + + + | Problem | Noted Date | + + + | S/P lumbar spinal fusion | 02/28/2017 | + + + | Cervical spinal stenosis | 02/28/2017 | + + + | Chronic pain syndrome | 02/28/2017 | + + + | Weakness of both lower extremities | 11/28/2016 | + + + Family History + + +------+ + | Medical History | Relation | Name | Comments | + + +------+ + | Heart attack | Father | | | + + +------+ + | Heart disease | Father | | | + + +------+ + | Hypertension | Father | | | + + +------+ + | Cancer | Mother | | | + + +------+ + | Heart disease | Mother | | | + + +------+ + | Hypertension | Mother | | | + + +------+ + | Stroke | Mother | | | + + +------+ + | Aneurysm | Sister | | | + + +------+ + | Cancer | Sister | | | + + +------+ + | Diabetes type II | Sister | | | + + +------+ + | Heart disease | Sister | | | + + +------+ + | Hypertension | Sister | | | + + +------+ + | Stroke | Sister | | | + + +------+ + + +------+ + + | Relation | Name | Status | Comments | + +------+ + + | Father | | | | + +------+ + + | Mother | | | | + +------+ + + | Sister | | | | + +------+ + + Social History + +-------+ +--------+------+ | Tobacco Use | Types | Packs/Day | Years | Date | | | | | Used | | + +-------+ +--------+------+ | Former Smoker | | | | | + +-------+ +--------+------+ + +---+---+---+ | Smokeless Tobacco: | | | | | Never Used | | | | + +---+---+---+ + + | Comments: quit 2016 | + + + + +---------+ + | Alcohol Use | Drinks/We | oz/Week | Comments | | | ek | | | + + +---------+ + | No | 0 | 0.0 | | | | Standard | | | | | drinks or | | | | | | | | | | equivalen | | | | | t | | | + + +---------+ + + + + | Sex Assigned at | Date Recorded | | | | + + + | Not on file | | + + + Last Filed Vital Signs + + + + | Vital Sign | Reading | Time Taken | + + + + | Blood Pressure | 171/91 | 01/23/2017 2:03 PM PDT | + + + + | Pulse | 86 | 01/23/2017 2:03 PM PDT | + + + + | Temperature | - | - | + + + + | Respiratory Rate | - | - | + + + + | Oxygen Saturation | - | - | + + + + | Inhaled Oxygen | - | - | | Concentration | | | + + + + | Weight | 44.5 kg (98 lb) | 01/23/2017 2:03 PM PDT | + + + + | Height | 160 cm (5' 3") | 01/23/2017 2:03 PM PDT | + + + + | Body Mass Index | 17.36 | 01/23/2017 2:03 PM PDT | + + + + Plan [...] Screening | 2 | | | | (Mammogram) | | | | + + + + + | Colon Cancer | | | | | Screening | 2 | | | | (Colonoscopy) | | | | + + + + + | Vaccine: Zoster (1 | | | | | of 2) | 2 | | | + + + + + | DEXA SCAN SCREENING | | | | | | 7 | | | + + + + + | Vaccine: | | | | | Pneumococcal 65+ | 7 | | | | Low/Medium Risk (1 | | | | | of 2 - PCV13) | | | | + + + + + | Vaccine: Influenza | | | | | (#1) | 9 | | | + + + + + Results Not on filefrom Last 3 Months Insurance + +--------+ +------+-------+ + | Payer | Benefi | Subscriber | Type | Phone | Address | | | t Plan | ID | | | | | | / | | | | | | | Group | | | | | + +--------+ +------+-------+ + | MEDICAID | [place] | [id number] | | | [address] | | | [place] | | | | [place] | | | [place] | | | | [address] | | | [employer]LL [employer]OP SUPERVISOR | | | | | + +--------+ +------+-------+ + + +--------+ +--------+ + + | Guarantor Name | Accoun | Relation to | Date | Phone | Billing Address | | | t Type | Patient | of | | | | | | | | | | + +--------+ +--------+ + + | ALBA MCGUIRE | Person | Self | [birth year] | Home: | [address] | | al/Fam | | 1950 | [phone] | [place] | | | twan | | | [address] | [phone] | + +--------+ +--------+ + +
--- OUTSIDE RECORDS SUMMARY | ~2019-05-07 | XMS | Encounter Summary ---
Demographics + + + | Address | [address] | | | [place] [address] | + + + | Home Phone | | + + + | Preferred Language | Unknown | + + + | Marital Status | Unknown | + + + | Shinto Affiliation | Unknown | + + + | Race | Unknown | + + + | Ethnic Group | Unknown | + + + Author + + + | Author | [facility] | | | and [place] | + + + | Organization | [facility] | | [...] Team Providers + +------+ + | Care Private Wealth Advisor Name | Role | Phone | + +------+ + | Davian Strong DO | PCP | | + +------+ + Reason for Visit + + + | Reason | Comments | + + + | Medication Refill | | + + + | Medication Refill | | + + + | Medication Refill | | + + + Encounter Details +--------+--------+ + + + | Date | Type | Department | Care Team | Description | +--------+--------+ + + + | 02/14/ | Refill | [facility] | Davian Strong, | Medication Refill; | | 2018 | | [facility] | [address] | Medication Refill; | | | | [facility] [address] | [facility], [place] | Medication Refill | | | | [address] [place], | [address] | | | | | [place] [address] | [phone] | | | | | [phone] | | | +--------+--------+ + + + Social History + + [...] filedocumented as of this encounter Visit Diagnoses + + | Diagnosis | + + | Failed back syndrome, lumbar Postlaminectomy syndrome, lumbar region | + + | Failed neck syndrome Postlaminectomy syndrome, cervical region | + + | 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
--- OUTSIDE RECORDS SUMMARY | ~2019-05-07 | XMS | Encounter Summary ---
Demographics + + + | Address | [address] | | | [place] [address] | + + + | Home Phone | | + + + | Preferred Language | Unknown | + + + | Marital Status | Single | + + + | Moravian Affiliation | CAT | + + + | Race | White | + + + | Ethnic Group | Not or | + + + Author + + + | Author | [facility] | + + + | Organization | [facility] | + + + | Address | Unknown | + + + | Phone | Unavailable | + + + Support + + + + + | Name | Relationship | Address | Phone | + + + + + | Esperanza Garcia | ECON | [address] | | | | | [place] [address] | | + + + + + | Alejandro Nance | ECON | Unknown | | + + + + + Care Team Providers + +------+ + | Care Life Sciences Instructor Name | Role | Phone | + +------+ + | Emmanuel Llanos MD | PCP | | + +------+ + Encounter Details +--------+ + + + + | Date | Type | Department | Care Team | Description | +--------+ + + + + | 01/26/ | Hospital | Radiology/Imaging | Bryan Stokes, | | | 2018 | Encounter | Lab at [facility] [address] | [address] | | | | | Holden Franco Mailcode: | [address] | | | | | [facility] | [place], [place] | | | | | and Healing, | [address] | | | | | [facility] | [phone] | | | | | Floor [place], [place] | | | | | | [address] | | | | | | [phone] | | | +--------+ + + + + Social History + +-------+ [...] + + documented as of this encounter Medications at Time of Discharge + + + +---------+ + + | Medication | Sig | Dispensed | Refills | Start | End Date | | | | | | Date | | + + + +---------+ + + | albuterol 90 | Inhale by mouth. | | 0 | | | | mcg/actuation | | | | | | | inhalation HFA | | | | | | | aerosol inhaler | | | | | | + + + +---------+ + + | atorvastatin 40 mg | Take by mouth. | | 0 | | | | oral tablet | | | | | | + + + +---------+ + + | gabapentin 800 mg | Take by mouth. | | 0 | | | | oral tablet | | | | | | + + + +---------+ + + | HYDROmorphone 4 mg | take 1/2 twice a day | | 0 | /05/25 | | | oral tablet | IN LATE AFTERNOON | | | 18 | | + + + +---------+ + + | methadone 10 mg | take 2 tablets by | | 0 | 01/19/20 | | | oral tablet | mouth every 6 hours | | | 18 | | | | if needed | | | | | + + + +---------+ + + | montelukast 10 mg | Take by mouth. | | 0 | | | | oral tablet | | | | | | + + + +---------+ + + | Nebivolol 10 mg | Take by mouth. | | 0 | | | | oral tablet | | | | | | + + + +---------+ + + | nitroglycerin 0.4 | Place under tongue. | | 0 | | | | mg sublingual | | | | | | | tablet, sublingual | | | | | | + + + +---------+ + + | oxyCODONE | take 1 tablet by | | 0 | 01/14/20 | | | (immediate release) | mouth every 6 hours | | | 18 | | | 15 mg oral tablet | if needed | | | | | + + + +---------+ + + documented as of this encounter Plan of Treatment Not on filedocumented as of this encounter Procedures + +--------+ + + + | Procedure Name | Priori | Date/Time | Associated Diagnosis | Comments | | | ty | | | | + +--------+ + + + | X-RAY SPINE CERV 4 | Routin | 01/26/2018 | Neck pain | Results for this | | VIEWS | e | 1:20 PM | | procedure are in the | | | | PDT | | results section. | + +--------+ + + + documented in this encounter Results X-RAY SPINE CERV 4 [...] necessary, edited the report. I agree with e report as now presented. | | | |Final signature: Marisela áSnchez MD 01/26/2018 1:30 PM | |Preliminary: Marisela [...] + | Diagnosis | + + | Neck pain Cervicalgia | + + documented in this encounter"
--- OUTSIDE RECORDS SUMMARY | ~2019-05-07 | XMS | Encounter Summary ---
Demographics + + + | Address | [address] | | | [place] [address] | + + + | Home Phone | | + + + | Preferred Language | Unknown | + + + | Marital Status | Single | + + + | Sikh Affiliation | CAT | + + + | Race | White | + + + | Ethnic Group | Not or | + + + Author + + + | Author | [facility] | + + + | Organization | [facility] | + + + | Address | Unknown | + + + | Phone | Unavailable | + + + Support + + + + + | Name | Relationship | Address | Phone | + + + + + | Esperanza Garcia | ECON | [address] | | | | | [place] [address] | | + + + + + | Alejandro Nance | ECON | Unknown | | + + + + + Care Team Providers + +------+ + | Care Auto Parts Salesperson Name | Role | Phone | + [...] | | | | | cervical | [address] | [address] | | | | | region | Phone: | Phone: | | | | | Procedures | [phone] | [phone] | | | | | REQUEST TO | Fax: | Fax: | | | | | SURGERY | [phone] | [phone] | | | | | SIDE PANEL HANGER | | | | | | | DC NECK | | | | | | | SPINE | | | | | | | FUSE&REM | | | | | | | ADDL DC | | | | | | | SPIN BONE | | | | | | | ALLOGRFT | | | | | | | STRUCTURAL | | | | | | | DC INSERT | | | | | | [...] Closed | | Spine | Diagnoses | [place], | Ehsan, | | | | | Spinal | Emmanuel Brannon | ADAMARIS Hodges | | | | | instabilitie | MD Jaspal | [address] | | | | | s, cervical | [address] | Ave | | | | | region | [place] | [place], [place] | | | | | | [facility] | [address] | | | | | | [address] | Phone: | | | | | | [address] | [phone] | | | | | | [address] | Fax: | | | | | | [place], | [phone] | | | | | | [place] [address] | | | | | | | Phone: | | | | | | | [phone] | | | | | | | Fax: | | | | | | | [phone] | | +--------+--------+ + + + + Encounter Details +--------+---------+ + + + | Date | Type | Department | Care Team | Description | +--------+---------+ + + + | 01/26/ | Office | Orthopaedics at | Bryan Stokes, | Cervical myelopathy | | 2018 | Visit | [facility] [address] | [address] | ([facility]) (Primary Dx); | | | | Ave Mailcode: [address] | [address] | Neck pain | | | | [facility] | [place], [place] | | | | | and Healing, | [address] | | | | | [facility] | [phone] | | | | | Floor [place], [place] | | | | | | [address] | | | | | | [phone] | | | +--------+---------+ + + + [...] and plan of care. Bryan Stokes MD [employer] Fruit Crop Farmer - Spine Surgery [facility] Department of Orthopaedics & Rehabilitation Andrea Maldonado DO - 01/26/2018 2:30 PM PDT Referral: Emmanuel Llanos Jr., MD CC: neck pain, back pain, arm and leg pain HPI: Stefanie Dennis is a 67 y.o. female who has a known history of chronic low back and neck pain after multiple spinal surgeries. 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
--- OUTSIDE RECORDS SUMMARY | ~2019-05-07 | XMS | Encounter Summary ---
Demographics + + + | Address | [address] | | | [place] [address] | + + + | Home Phone | | + + + | Preferred Language | Unknown | + + + | Marital Status | Unknown | + + + | Taoism Affiliation | Unknown | + + + | Race | Unknown | + + + | Ethnic Group | Unknown | + + + Author + + + | Author | [facility] | | | and [place] | + + + | Organization | [facility] | | | and [...] Team Providers + +------+ + | Care Aircraft Engine Dismantler Name | Role | Phone | + +------+ + | Davian Strong DO | PCP | | + +------+ + Encounter Details +--------+ + + + + | Date | Type | Department | Care Team | Description | +--------+ + + + + | 02/24/ | Orders Only | [facility] | Lea Mack | | | 2019 | | [facility] | [address] | | | | | [facility] [address] | [address] [facility], | | | | | [address] [facility], | [place] [address] | | | | | [place] [address] | [phone] | | | | | [phone] | | | +--------+ + + + [...]
--- OUTSIDE RECORDS SUMMARY | ~2019-05-07 | XMS | Encounter Summary ---
Demographics + + + | Address | [address] | | | [place] [address] | + + + | Home Phone | | + + + | Preferred Language | Unknown | + + + | Marital Status | Unknown | + + + | Mandaeism Affiliation | Unknown | + + + | Race | Unknown | + + + | Ethnic Group | Unknown | + + + Author + + + | Author | [facility] | | | and [place] | + + + | Organization | [facility] | | [...] Team Providers + +------+ + | Care Ham Doctor Name | Role | Phone | + +------+ + | Davian Strong DO | PCP | | + +------+ + Reason for Visit + + + | Reason | Comments | + + + | Medication Refill | | + + + Encounter Details +--------+---------+ + + + | Date | Type | Department | Care Team | Description | +--------+---------+ + + + | 02/28/ | Office | [facility] | Lea Mack | Failed back | | 2019 | Visit | [facility] | [address] | syndrome, lumbar; | | | | MED[facility] [address] | [address] [place], | Failed neck | | | | [address] [place], | [place] [address] | syndrome; jail | | | | [place] [address] | [phone] | current use of | | | | [phone] | | opiate analgesic | +--------+---------+ + + + Social History + + [...] + | Blood Pressure | 162/64 | 02/28/2019 1518 PDT | + + + + | [...] + + + + | Height | - | - | + + + + | Body Mass Index | 19.12 | 12/17/2018 0932 PDT | + + + + documented in this encounter Progress Notes Lea Mack MD - 02/28/2019 1530 PDTFormatting of this note might be different fr om the original. Patient ID: Alba Rutherford is a 68 y.o. year old female Chief Complaint Patient presents with Medication Refill Assessment and Plan: Failed back syndrome, lumbar - oxyCODONE (ROXICODONE) 15 mg immediate release tablet; Take 1 tablet by mouth every 6 hours as needed for Pain. Dispense: 56 tablet; Refill: 0 - methadone 10 mg tablet; Take 2 tablets by mouth 4 times daily. Dispense: 112 tablet; Refill: 0 Failed neck syndrome - oxyCODONE (ROXICODONE) 15 mg immediate release tablet; Take 1 tablet by mouth every 6 hours as needed for Pain. Dispense: 56 tablet; Refill: 0 - methadone 10 mg tablet; Take 2 tablets by mouth 4 times daily. 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 Dispense: 56 tablet; Refill: 0 - methadone 10 mg tablet; Take 2 tablets by mouth 4 times daily. Dispense: 112 tablet; Refill: 0 Extensive discussion about physiology of opioids, CDC guidelines for pain treatment, chroni c pain vs acute pain, and risks of opioid therapy. I am unwilling to continue to prescribe a t current levels. I do not think it is reasonable to taper all the way off at this point. We have agreed to drop the hydromorphone now, then begin to taper either the methadone or ox ycodone at a rate of 5 mg every 2 weeks. She can choose. I think that leveling off at 10 m g QID of methadone and a little bit of 5mg oxycodone is a reasonable sustainable plan going forward. More than 50% of this 30 minute visit was spent in counseling about pain medication use. Return if symptoms worsen or fail to improve. Subjective: HPI This is a previous patient of Dr. Mccollum, on high MEDD, for whom I have instituted a taper. Medications have included methadone 20 mg 4 times a day plus an additional 5 mg twic e a day, oxycodone 15 mg 4 times a day when necessary, regularly filled, and hydromorphone 2 mg daily. She used to be on soma as well. She started with our clinic about a year ago on similar medications and these were continued. They are given for failed back syndrome and failed neck syndrome. Has had by her account 9 spine surgeries. Urine drug screen was approp riate this month. MEDD is complicated given the methadone, but realistically > 1000. Co-morb idities include low BMI. Primary care was with Dr. Llanos in [place] for many years, the n here for the past year. Last summer at [facility] they talked about doing cervical fusion, but she had not made the decision to do so. [facility] did suggest that she start reducing her pain m edication. Function is poor, spends all her time lying on the couch. No records of aberrant drug related behaviors. Review of Systems Objective: Vitals: BP 162/64 | Pulse 90 | Resp 16 | Wt 45.9 kg (101 lb 3.2 oz) | LMP (LMP Unknown) | SpO 2 100% | ? No | BMI 19.12 kg/m Physical Exam Constitutional: She appears well-developed and well-nourished. Musculoskeletal: Scarring along spine Neurological: Walks with limp Psychiatric: She has a normal mood and affect. Her behavior is normal. 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
--- OUTSIDE RECORDS SUMMARY | ~2019-05-07 | XMS | Clinical Summary ---
Demographics + + + | Address | [address] | | | [place] [address] | + + + | Home Phone | | + + + | Preferred Language | Unknown | + + + | Marital Status | Single | + + + | Mandaen Affiliation | CAT | + + + [...] + | Esperanza Garcia | ECON | [address] | | | | | [place] [address] | | + + + + + | Alejandro Nance | ECON | Unknown | | + + + + + Care Team Providers + +------+ + | Care International Student Counselor Name | Role | Phone | + +------+ + | Emmanuel Llanos MD | PCP | | + +------+ + Source Comments BETSY is fully live on both [facility] and [facility] InPatient.[facility] Allergies Not on File Medications + + [...]
--- OUTSIDE RECORDS SUMMARY | ~2019-05-07 | XMS | Encounter Summary ---
Demographics + + + | Address | [address] | | | [place] [address] | + + + | Home Phone | | + + + | Preferred Language | Unknown | + + + | Marital Status | Unknown | + + + | Mandaen Affiliation | Unknown | + + + | Race | Unknown | + + + | Ethnic Group | Unknown | + + + Author + + + | Author | [facility] | | | and [place] | + + + | Organization | [facility] | | | [...] Team Providers + +------+ + | Care Poured Pipe Maker Name | Role | Phone | + +------+ + | Davian Strong DO | PCP | | + +------+ + Encounter Details +--------+ + + + + | Date | Type | Department | Care Team | Description | +--------+ + + + + | 02/16/ | Telephone | [facility] | Davian Strong, | | | 2019 | | [facility] | DO [address] | | | | | [facility] [address] | [facility], [place] | | | | | [address] [place], | [address] | | | | | [place] [address] | [phone] | | | | | [phone] | | | +--------+ + + + [...]
--- OUTSIDE RECORDS SUMMARY | ~2019-05-07 | XMS | Encounter Summary ---
Demographics + + + | Address | [address] | | | [place] [address] | + + + | Home Phone | | + + + | Preferred Language | Unknown | + + + | Marital Status | Unknown | + + + | Evangelical Affiliation | Unknown | + + + | Race | Unknown | + + + | Ethnic Group | Unknown | + + + Author + + + | Author | [facility] | | | and [place] | + + + | Organization | [facility] | | | and [...] Team Providers + +------+ + | Care Mail Clerk Bills Name | Role | Phone | + [...] Medication Refill; | | 2018 | | [facility] | [address] | Medication Refill; | | | | [facility] [address] | [facility], [place] | Medication Refill | | | | [address] [place], | [address] | | | | | [place] [address] | [phone] | | | | | [phone] | | | +--------+--------+ + + + [...] syndrome, cervical region | + + | 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
--- OUTSIDE RECORDS SUMMARY | ~2019-05-07 | XMS | Clinical Summary ---
Demographics + + + | Address | [address] | | | [place] [address] | + + + | Home Phone | | + + + | Preferred Language | Unknown | + + + | Marital Status | | + + + | Baptism Affiliation | Unknown | + + + | Race | Unknown | + + + | Ethnic Group | Unknown | + + + Author + + + | Author | [facility] (Historical as of | | | 02-19-19) | + + + | Organization | [facility] (Historical as of | | | 02-19-19) [...] Team Providers + +------+ + | Care Pantograph Engraver Name | Role | Phone | + [...] | | | | e | | ([employer]) 80-14.2 | | | | | | [...] +------+-------+ + | MEDICAID | [place] | [id number] | | | [address] | | | [place] | | | | [place] | | | [place] | | | | [address] | | | BULK STATION OPERATOR | | | | | + +--------+ [...] | twan | | | [address]43 | [address] | + +--------+ +--------+ + +
--- OUTSIDE RECORDS SUMMARY | ~2019-05-07 | XMS | Encounter Summary ---
Demographics + + + | Address | [address] | | | [place] [address] | + + + | Home Phone | | + + + | Preferred Language | Unknown | + + + | Marital Status | Unknown | + + + | Anglican Affiliation | Unknown | + + + | Race | Unknown | + + + | Ethnic Group | Unknown | + + + Author + + + | Author | [facility] | | | and [place] | + + + | Organization | [facility] | | | and [...] Team Providers + +------+ + | Care Press Supervisor Name | Role | Phone | + [...] | | | MEDICAL CLIN[facility] [address] | [facility], [place] | | | | | [address] [facility], | [address] | | | | | [place] [address] | [phone] | | | | | [phone] | | | +--------+ + + + [...]
--- OUTSIDE RECORDS SUMMARY | ~2019-05-07 | XMS | Clinical Summary ---
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 | | | | | [place] coronary | | | | | | artery of [place] | | | | | | heart with stable | | | | | | angina pectoris | | | | | | ([facility]) On potassium | | | | | [...] + + | [facility] A[facility] | [address] | [place] [address] | [phone] | | [facility] | | | [...] | Cocaine | Negative | Negative | [place] | [...] the attending | REGIONAL | | physician. Bdyi-adj-xuyinlc drugs may cross react with some methods. [...] [address] | [place] [address] | [phone] | | [facility] | | | [...] - 1.030 | [place] | | | [place] | | | RONDE | | | [...] + + | [facility] | [address] | [place] [address] | [phone] | | [facility] | | | | | [facility] | | | | + + + + + from Last 3 Months Advance Directives Patient has advance care planning documents on file. For more information, please contact:[facility] [place] [address]
--- OUTSIDE RECORDS SUMMARY | ~2019-05-07 | XMS | Encounter Summary ---
Demographics + + + | Address | [address] | | | [place] [address] | + + + | Home Phone | | + + + | Preferred Language | Unknown | + + + | Marital Status | Single | + + + | Sabianist Affiliation | CAT | + + + | Race | White | + + + | Ethnic Group | Not or | + + + Author + + + | Author | [facility] | + + + | Organization | [facility] | + + + | Address | Unknown | + + + | Phone | Unavailable | + + + Support + + + + + | Name | Relationship | Address | Phone | + + + + + | Esperanza Garcia | ECON | [address] | | | | | [place] [address] | | + + + + + | Alejandro Nance | ECON | Unknown | | + + + + + Care Team Providers + +------+ + | Care Piano Builder Name | Role | Phone | + +------+ + | Emmanuel Llanos MD | PCP | | + +------+ + Encounter Details +--------+ + + + + | Date | Type | Department | Care Team | Description | +--------+ + + + + | 01/26/ | Hospital | Radiology/Imaging | Bryan Stokes, | | | 2018 | Encounter | Lab at [facility] [address] | [address] | | | | | Holden Franco Mailcode: | [address] | | | | | [facility] | [place], [place] | | | | | and Healing, | [address] | | | | | [facility] | [phone] | | | | | Floor [place], [place] | | | | | | [address] | | | | | | [phone] | | | +--------+ + + + [...]
--- OUTSIDE RECORDS SUMMARY | ~2019-05-07 | XMS | Encounter Summary ---
Demographics + + + | Address | [address] | | | [place] [address] | + + + | Home Phone | | + + + | Preferred Language | Unknown | + + + | Marital Status | Unknown | + + + | Adventism Affiliation | Unknown | + + + | Race | Unknown | + + + | Ethnic Group | Unknown | + + + Author + + + | Author | [facility] | | | and [place] | + + + | Organization | [facility] | | | [...] Team Providers + +------+ + | Care Director Learning Name | Role | Phone | + [...] back | | 2019 | Visit | [facility] | [address] | syndrome, lumbar; | | | | MEDICAL CLINIC [address] | [address] [place], | Failed neck | | | | [address] [place], | [place] [address] | syndrome; jail | | | | [place] [address] | [phone] | current use of | | | | [phone] | | opiate analgesic | +--------+---------+ + [...] times daily. 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 Llanos in [place] for many years, the n here for the past year. Last summer at [facility] they talked about doing cervical fusion, but she had not made the decision to do so. [facility] did suggest that she start reducing her [...] syndrome, cervical region | + + | salvage determiner current use of opiate analgesic Encounter for long-term (current) use of | | other medications | + + documented in this encounter"
[~2019-05-07 06:35] MED LIST: DILAUDID2 MG PO; DOLOPHINE HCL10 MG PO; NEURONTIN300 MG PO; NITROSTAT0.4 MG SL; OXYCODONE HCL15 MG PO; SOMA350 MG PO
--- OUTSIDE RECORDS SUMMARY | 2019-05-07 06:38 | XMS ---
PreManage Notification: ZAIN MCGUIRE Security Delivery Analyst Events No recent Security Events currently on file CRITERIA MET - MYAHP CARE PROVIDERS SINDHU MIRANDA [facility] Current PHONE: Unknown Emma has no Care Guidelines for this patient. EMadeleine VISIT COUNT (12 MO.) 1 TODD Puckett TOTAL 1 NOTE: Visits indicate total known visits. ED/UCC VISIT TRACKING (12 MO.) 05/07/2019 06:[address] [facility] [place] TYPE: Emergency COMPLAINT: - CHEST PAIN INPATIENT VISIT TRACKING (12 MO.) No inpatient visits to display in this time frame [id number]
--- NOTE | 2019-05-08 15:30 | EKG ---
[facility] [address] [place], [place] [address] Signed Sinus rhythm with frequent premature ventricular complexes Moderate voltage criteria for LVH, may be normal variant ST \T\ T wave abnormality, consider inferior ischemia Abnormal ECG No previous ECGs available Confirmed by PAULINA REGALADO DO ([id number]) on 05/08/2019 3:30:01 PM Electronically Signed By: PAULINA REGALADO DO 05/08/19 1530 PATIENT NAME: ZAIN MCGUIRE KYRA Electrocardiogram DATE OF : 54 PHYSICIAN: PAULINA REGALADO DO REPORT #: [id number] REPORT IS CONFIDENTIAL AND NOT TO BE RELEASED WITHOUT AUTHORIZATION
== END 2019-05-07 10:59 | disposition home or self-care (01) ==
LOC: ED 06:35
DX: R07.89 Other chest pain (principal); I10 Essential (primary) hypertension; E78.00 Pure hypercholesterolemia, unspecified; J45.909 Unspecified asthma, uncomplicated; Z88.0 Allergy status to penicillin; Z79.899 Other long term (current) drug therapy; Z79.891 Long term (current) use of opiate analgesic
CPT/HCPCS: 71045; 71260; 80053; 84484; 85025; 85379; 93005; 93010; 99285-25; 99406; J1170; J1885; Q9967

== ENCOUNTER 2023-06-26 13:29 | Emergency (ER) | payer SELFPAY ==
[~2023-06-26] VITALS: Ht 157.5 cm; Wt 46.7 kg
[~2023-06-26 13:29] MED LIST changes: +LASIX20 MG PO; +OXYCODONE HCL10 MG PO; +SYMBICORT 16010.2 GM INH
--- OUTSIDE RECORDS SUMMARY | 2023-06-26 13:39 | XMS ---
PreManage Notification: MAREK MCGUIRE Security Emergency Medicine Physician Assistant Events No recent Security Events currently on file CRITERIA MET - [facility] - 2 Visits in 30 Days CARE PROVIDERS RELL CARRERO JR Internal Medicine 05/09/2019-Current A PHONE: Unknown SINDHU ELENA [facility] Current PHONE: Unknown Emma has no Care Guidelines for this patient. [facility] VISIT COUNT (12 MO.) 2 [facility] TOTAL 2 NOTE: Visits indicate total known visits. ED/UCC VISIT TRACKING (12 MO.) 06/26/2023 13:30 [facility] [place] TYPE: Emergency COMPLAINT: - POSS STROKE 06/08/2023 03:53 [facility] [place] TYPE: Emergency COMPLAINT: - CHEST PAIN, SOB DIAGNOSES: - Allergy status to penicillin - Chest pain, unspecified - Chronic obstructive pulmonary disease, unspecified - Encounter for screening for COVID-19 - Heart failure, unspecified - Hypertensive heart disease with heart failure - Nicotine dependence, unspecified, uncomplicated - Non-ST elevation (NSTEMI) myocardial infarction INPATIENT VISIT TRACKING (12 MO.) 06/20/2023 23:30 [facility] TYPE: Cardiology DIAGNOSES: 25506. Atherosclerotic heart disease of [place] coronary artery without angina pectoris 81178. Coronary atherosclerosis due to lipid rich plaque 84126. Coronary artery disease 93131. Acute systolic (congestive) heart failure 22123. Atherosclerotic heart disease of [place] coronary artery without angina pectoris 07711. Coronary atherosclerosis due to lipid rich plaque 10988. Hyperlipidemia, unspecified 67019. Non-ST elevation (NSTEMI) myocardial infarction 06/08/2023 14:58 [facility] TYPE: General Medicine DIAGNOSES: 73011. Non-ST elevation (NSTEMI) myocardial infarction 22886. NSTEMI 64085. Non-ST elevation (NSTEMI) myocardial infarction [email or web address]
[2023-06-26 14:06] LABS: BASOPHILS 0.6 % (0-2); EOSINOPHILS 4.6 % (0-6); HEMATOCRIT 32.3 % (35.0-50.0); LYMPHOCYTES 26.2 % (24-44); MCH 33.5 (27-36); MCV 98.5 fl (81-99); MONOCYTES 5.9 % (0-12); NEUTROPHILS 62.7 % (39-80); PLATELET COUNT 214 K/uL (140-440); RBC 3.27 M/ul (4.3-5.7); RDW 13.2 (10.5-15.0)
[2023-06-26 14:21] LABS: ALBUMIN 3.6 g/dL (3.4-5.0); ALBUMIN/GLOBULIN RATIO 1.13 (1.1-2.4); ANION GAP 12.2 (7-21); BILIRUBIN, TOTAL 0.4 ng/dL (0.2-1.0); BUN/CREATININE RATIO 22.72 (6.0-28.6); CALCIUM 8.8 mg/dL (8.5-10.1); CREATININE, SERUM 1.1 mg/dL (0.55-1.02); POTASSIUM 4.2 mmol/L (3.5-5.1); PROTEIN, TOTAL 6.8 g/dL (6.4-8.2)
[2023-06-26 16:36] VITALS: BP 134/66
== END 2023-06-26 16:35 | disposition home or self-care (01) ==
LOC: ED 13:29
PROVIDERS: Emergency Medicine
DX: G45.9 Transient cerebral ischemic attack, unspecified (principal); I10 Essential (primary) hypertension; E78.00 Pure hypercholesterolemia, unspecified; J45.909 Unspecified asthma, uncomplicated; G89.29 Other chronic pain; F17.200 Nicotine dependence, unspecified, uncomplicated; Z88.0 Allergy status to penicillin; Z79.899 Other long term (current) drug therapy; Z79.51 Long term (current) use of inhaled steroids
CPT/HCPCS: 36415; 70450; 70496; 70498; 80053; 85025; 99284-25; Q9967

== ENCOUNTER 2023-12-02 13:36 | Emergency (ER) | payer SELFPAY ==
[~2023-12-02] VITALS: Ht 157.5 cm; Wt 44.1 kg
--- OUTSIDE RECORDS SUMMARY | 2023-12-02 13:40 | XMS ---
PreManage Notification: MAREK MCGUIRE Security Inweaver Events No recent Security Events currently on file CRITERIA MET - [facility] PROVIDERS RELL CARRERO JR Internal [facility] 05/09/2019-Current A PHONE: Unknown SINDHU ELENA [facility] Current PHONE: Unknown Emma has no Care Guidelines for this patient. [facility] VISIT COUNT (12 MO.) Aiyana [facility] TOTAL 3 NOTE: Visits indicate total known visits. ED/UCC VISIT TRACKING (12 MO.) 12/02/2023 13:37 [facility] [place] TYPE: Emergency COMPLAINT: - R FOOT PAIN 06/26/2023 13:30 [facility] [place] TYPE: Emergency COMPLAINT: - POSS STROKE DIAGNOSES: - Allergy status to penicillin - Essential (primary) hypertension - retirement (current) use of inhaled steroids - Nicotine dependence, unspecified, uncomplicated - Other chronic pain - Other prison (current) drug therapy - Other speech disturbances - Pure hypercholesterolemia, unspecified - Transient cerebral ischemic attack, unspecified - Unspecified asthma, uncomplicated 06/08/2023 03:53 [facility] [place] TYPE: Emergency COMPLAINT: - CHEST PAIN, SOB DIAGNOSES: - Allergy status to penicillin - Chest pain, unspecified - Chronic obstructive pulmonary disease, unspecified - Encounter for screening for COVID-19 - Heart failure, unspecified - Hypertensive heart disease with heart failure - Nicotine dependence, unspecified, uncomplicated - Non-ST elevation (NSTEMI) myocardial infarction INPATIENT VISIT TRACKING (12 MO.) 06/20/2023 23:30 [facility] TYPE: Cardiology DIAGNOSES: 32500. Atherosclerotic heart disease of [place] coronary artery without angina pectoris 54150. Coronary atherosclerosis due to lipid rich plaque 81522. Coronary artery disease 77224. Acute systolic (congestive) heart failure 07062. Atherosclerotic heart disease of [place] coronary artery without angina pectoris 15929. Coronary atherosclerosis due to lipid rich plaque 42913. Hyperlipidemia, unspecified 54955. Non-ST elevation (NSTEMI) myocardial infarction 06/08/2023 14:58 [facility] [place] TYPE: General Medicine DIAGNOSES: 00338. Non-ST elevation (NSTEMI) myocardial infarction 96082. NSTEMI 09178. Non-ST elevation (NSTEMI) myocardial infarction [email or web address]
[2023-12-02] MEDS ORDERED: CLOPIDOGREL75 MG PO (14:44)
[2023-12-02] MEDS ORDERED: ALDACTONE25 MG PO (14:45)
[2023-12-02] MEDS ORDERED: METOPROLOL SUCC50 MG PO (14:45)
[2023-12-02] MEDS ORDERED: LOSARTAN POTASS50 MG PO (14:46)
[2023-12-02] MEDS ORDERED: PANTOPRAZOLE SO40 MG PO (14:46)
[2023-12-02 15:58] VITALS: BP 155/76
== END 2023-12-02 15:59 | disposition home or self-care (01) ==
LOC: ED 13:36
DX: I73.9 Peripheral vascular disease, unspecified (principal); I10 Essential (primary) hypertension; E78.00 Pure hypercholesterolemia, unspecified; I25.2 Old myocardial infarction; J45.909 Unspecified asthma, uncomplicated; F17.200 Nicotine dependence, unspecified, uncomplicated; Z88.0 Allergy status to penicillin; Z79.899 Other long term (current) drug therapy
CPT/HCPCS: 99283

== ENCOUNTER 2025-02-20 02:53 | Inpatient (IN) | payer SELFPAY ==
[~2025-02-20] VITALS: Ht 157.5 cm; Wt 40.6 kg
[~2025-02-20 02:53] MED LIST changes: +ALDACTONE25 MG PO; +CLOPIDOGREL75 MG PO; +LOSARTAN POTASS50 MG PO; +METOPROLOL SUCC50 MG PO; +PANTOPRAZOLE SO40 MG PO
[2025-02-20 03:18] LABS: BASOPHILS 0.4 % (0.1-1.2); EOSINOPHILS 1.2 % (0.7-5.8); LYMPHOCYTES 19.3 % (19.3-51.7); MCH 32.3 PG (25.6-32.2); MCHC 34.3 g/dL (32.2-35.5); MCV 94.2 fL (79.4-94.8); MONOCYTES 7.5 % (4.7-12.5); NEUTROPHILS 71.2 % (34.0-71.1); RBC 3.81 M/uL (3.93-5.22)
[2025-02-20] MEDS ORDERED: ETOMIDATE 40 MG/20 ML VIAL IV ONE ×2 (03:30→03:45)
[2025-02-20 03:43] LABS: ALT (SGPT) 271.0 U/L (14-59); AST (SGOT) 194.0 U/L (15-37); GLOMERULAR FILTRATION RATE,EST 28.0 mL/min (>60); PROTEIN, TOTAL 6.5 g/dL (6.4-8.2); UREA NITROGEN 51.0 mg/dL (7-18)
[2025-02-20] MEDS ORDERED: ASPIRIN 81 MG CHEW PO ONE (04:00)
[2025-02-20] MEDS ORDERED: NITROGLYCERIN 0.4 MG SUBL SL PRN (04:00)
[2025-02-20] MEDS ORDERED: DIPHTH,PERTUSS(ACELL),TET VAC 0.5 ML SYRINGE IM ONE (04:15)
[2025-02-20] MEDS ORDERED: NITROGLYCERIN PACKET TOP ONE (04:45)
[2025-02-20] MEDS ORDERED: ROSUVASTATIN CA40 MG PO (04:51)
[2025-02-20] MEDS ORDERED: OXYCODONE HCL 5 MG TAB PO ONE (05:30)
[2025-02-20] MEDS ORDERED: FAMOTIDINE 20 MG/ 2 ML VIAL IV ONE (05:45)
[2025-02-20 07:00] LABS: BLOOD/HGB, URINE LARGE (Negative); KETONE, URINE NEGATIVE (Negative); LEUK ESTERASE, URINE NEGATIVE (negative); NITRITE, URINE NEGATIVE (negative)
[2025-02-20 07:13] LABS: BACTERIA, URINE 1+ /hpf (negative); CASTS, URINE NONE SEEN \\lpf; CRYSTALS, URINE NONE SEEN (0-1+); EPITHELIAL CELLS, URINE SQUAMOUS 2+ /lpf (0-1+)
[2025-02-20 07:14] LABS: REFLEX CULTURE, URINE No (No)
[2025-02-20] MEDS ORDERED: METHADONE HCL5 MG PO (10:17)
[2025-02-20] MEDS ORDERED: LOSARTAN POTAS100 MG PO (10:18)
[2025-02-20 10:43] VITALS: BP 123/87
--- NOTE | 2025-02-20 11:17 | NUR ---
PATIENT ADMITTED TO MED SURG. VITALS ARE STABLE. PATIENT RATES CHEST/BACK PAIN 5/10. PATIENT IS HAVING JELLO, 4MG OF IV ZOFRAN GIVEN. TELE IS ON. BED ALARM IS ON, PATIENT ORIENTED TO CALL LIGHT.
[2025-02-20] MEDS ORDERED: PHARMACY RENAL DOSE ADJUSTMENT 1 DOSE MISC PO SCH (12:00)
[2025-02-20] MEDS ORDERED: ACETAMINOPHEN 325 MG TAB PO PRN (12:00)
[2025-02-20] MEDS ORDERED: CLOPIDOGREL BISULFATE 75 MG TAB PO SCH (12:08)
[2025-02-20] MEDS ORDERED: METOPROLOL SUCCINATE 50 MG TABCR PO SCH (12:08)
[2025-02-20] MEDS ORDERED: METHADONE HCL 5 MG TAB PO SCH (12:09)
[2025-02-20] MEDS ORDERED: SODIUM CHLORIDE 0.9% 500 ML IV SCH (12:15)
--- NOTE | 2025-02-20 12:27 | EKG ---
[facility] [address] [facility] [place] [address] Signed Normal sinus rhythm Left ventricular hypertrophy with repolarization abnormality ( Sokolow-Johnson ) Abnormal ECG When compared with ECG of 08-Jun-2023 06:15:17 No significant change was found Confirmed by Giovanny Hudson MD ([id number]) on 02/20/2025 12:27:07 PM Electronically Signed By: GIOVANNY HUDSON MD 02/20/25 1227 PATIENT NAME: MAREK MCGUIRE KYRA Electrocardiogram DATE OF : 54 PHYSICIAN: GIOVANNY HUDSON MD REPORT #: [id number] REPORT IS CONFIDENTIAL AND NOT TO BE RELEASED WITHOUT AUTHORIZATION
--- NOTE | 2025-02-20 12:28 | EKG ---
[facility] [address] [facility] [place], [place] [address] Signed Normal sinus rhythm Left ventricular hypertrophy with repolarization abnormality ( Sokolow-Johnson ) Abnormal ECG When compared with ECG of 20-Feb-2025 03:00:32 No significant change was found Confirmed by Giovanny Hudson MD ([id number]) on 02/20/2025 12:28:03 PM Electronically Signed By: GIOVANNY HUDSON MD 02/20/25 1228 PATIENT NAME: MAREK MCGUIRE KYRA Electrocardiogram DATE OF : 54 PHYSICIAN: GIOVANNY HUDSON MD REPORT #: [id number] REPORT IS CONFIDENTIAL AND NOT TO BE RELEASED WITHOUT AUTHORIZATION
--- NOTE | 2025-02-20 12:29 | NUR ---
medications reconciled using pharmacy records and patient interview
[2025-02-20] MEDS ORDERED: OXYCODONE HCL 5 MG TAB PO PRN (12:30)
--- NOTE | 2025-02-20 12:37 | NUR ---
TROPONIN AT NOON IS 78.9, UP FROM 75.[address] MAX NOTIFIED AND IS PLACING NEW LAB ORDERS.
--- NOTE | 2025-02-20 13:07 | NUR ---
NORMAL SALINE 500ML AT 125ML/HR IS INFUSING TO LEFT A/C. PATIENT GIVEN SCHEDULED MEDICATIONS.
--- NOTE | 2025-02-20 13:26 | NUR ---
ULTRASOUND IN TO DO DOPPLER STUDY.
[2025-02-20] MEDS ORDERED: HEParin SOD (PORCINE) 5,000 UNIT/ML SDV SUB-Q SCH (14:00)
[2025-02-20 14:24] VITALS: BP 123/87
--- NOTE | 2025-02-20 14:26 | NUR ---
PATIENT IS HAVING ECHO AT THIS TIME. SQ HEPARIN GIVEN.
[2025-02-20 14:58] VITALS: BP 90/74
--- NOTE | 2025-02-20 15:40 | NUR ---
Spoke with Alba after my initial visit early this morning while she was in the ER. Pt now in a rm as an IP. Pt is difficult to follow and not always forth coming with her info. Per pt she moved to [place] years ago from [place], she eventually moved to [place] [employer] [place] and this is how she ended up with a Dr. there. She moved back to [place] a few years ago, she cannot remember when. She lives in a small apartment with three steps. She states she is frugal. She worked for [employer] for 17 years and had an on the job injury. She receives a pension for this. In the past her insurance was covered by one of her two [employer] until he lost his job. She also had insurance through [employer]. She now states she did not apply for her SS at 67 and she has not been able to get her SS or her Medicare. Her pcp is Dave Mcneill PA-C in [place]. She states the [employer] band builder has been assisting her to obtain Medicare and SS. I called [facility] and Disability to check if pt has LT Medicaid. They have this pt listed as Stefanie Diamond. She does not have LT Medicaid under either name. I discussed with pt what her needs are. Per pt she is unable to walk. She had an [place] a year or so ago and lost the circulation to her RLE. She was seen here approx 1 year ago and set up to see a vascular surgeon in [place]. Pt did not keep this appt as she had covid. She did not reschedule her appt. She states her PCP did speak with [facility] again about 5 months ago. She does not know what happened after. Pt does not have DME and does not think she will be able to walk with a walker. She feels she will need a wc. She again states she spent 3 days in her home and could not walk. She fell and hit her head when she attempted to walk as her legs would not hold her. I discussed with her the need for her to call [facility] and start an eval for LTM. She most likely will need to be placed and NO ONE will accept pts without some type of insurance. I offered to dial the number for [facility] and pt declines and does not want to speak with them now. I stressed the importance of contacting them as this can be a 45 day process. I will call her PCP and request records to see who the pcp contacted for vascular surgery. Pt uses methadone and other pain meds. Per pt, these are ordered by her pcp and she does not use a pain clinic. I called [facility] and was transferred to the medical records department. I left a message with my fax number requesting records. Will fu with pt tomorrow.
--- NOTE | 2025-02-20 15:53 | NUR ---
PATIENT RESTING IN BED WITH EYES CLOSED. RESPIRATIONS EVEN AND UNLABORED. CALL LIGHT WITHIN REACH.
--- NOTE | 2025-02-20 17:14 | NUR ---
PATIENT IS SITTING UP IN BED TO EAT DINNER.
[2025-02-20 18:42] VITALS: BP 94/38
--- NOTE | 2025-02-20 18:47 | NUR ---
PATIENT IN BED RESTING AT THIS TIME. VITALS AND I&O'S DONE AND CHARTED. RN NOTIFIED OF BP AND URINE OUTPUT. CALL LIGHT IN REACH. NO FURTHER NEESD AT THIS TIME.
--- NOTE | 2025-02-20 19:26 | NUR ---
REPORT RECEIVED FROM DAY SHIFT RN. PT LYING IN BED ALERT AND ORIENTED. SANDWICH BOX PROVIDED. NO FURTHER NEEDS. BED ALARM FOR SAFETY. CALL LIGHT IN REACH. WHITE BOARD UPDATED.
--- NOTE | 2025-02-20 20:46 | NUR ---
BED ALARM SOUNDING. pt SITTING UP TO EAT SANDWICH. NOT GETTING OUT OF BED AT THIS TIME. DENIES NEEDS. BED ALARM SET TO STANDING ALARM. CALL LIGHT IN REACH.
[2025-02-20 20:59] VITALS: BP 94/45
[2025-02-20] MEDS ORDERED: MELATONIN 3 MG TAB PO SCH (21:00)
[2025-02-20 21:10] VITALS: BP 94/45
--- NOTE | 2025-02-20 21:49 | NUR ---
EVENING ASSESSMENT COMPLETE. SCHEDULED MEDS ADMIN PER EMAR. PT REPORTS BACK/HEADACHE PAIN 02/12. SCHEDULED PAIN MEDS GIVEN. PT UP TO BSC WITH 1PA AND FWW TO VOID 200 ML YELLOW URINE. PT ABLE TO DO OWN BARBY CARE. REDDENED AREA NOTED ON RIGHT INTERGLUTEAL CLEFT. BLANCHABLE, SKIN INTACT. MATTRESS OVERLAY ADDED TO PT BED. PT BACK TO BED, ROQUE WELL. VS AND I&O OBTAINED. PT DENIES QUESTIONS OR CONCERNS. CALL LIGHT IN REACH. BED ALARM FOR SAFETY.
--- NOTE | 2025-02-20 23:42 | NUR ---
PT RESTING IN BED WITH EYES CLOSED. RESPIRATIONS EVEN. CALL LIGHT IN REACH. BED ALARM FOR SAFETY.
[2025-02-21] VITALS (12 sets, daily range): BP systolic 101–110; BP diastolic 38–88
--- NOTE | 2025-02-21 02:05 | NUR ---
CALL LIGHT ANSWERED. 2PA TO REPOSITION IN BED. WARM BLANKET PROVIDED. VS AND I&O OBTAINED. NO FURTHER NEEDS. BED ALARM IN PLACE. CALL LIGHT IN REACH.
--- NOTE | 2025-02-21 04:06 | NUR ---
PT RESTING IN BED WITH EYES CLOSED. RESPIRATIONS EVEN. CALL LIGHT IN REACH.
[2025-02-21 05:28] LABS: BASOPHILS 0.4 % (0.1-1.2); EOSINOPHILS 2.0 % (0.7-5.8); LYMPHOCYTES 34.9 % (19.3-51.7); MCH 32.3 PG (25.6-32.2); MCHC 33.3 g/dL (32.2-35.5); MCV 96.9 fL (79.4-94.8); MONOCYTES 7.7 % (4.7-12.5); NEUTROPHILS 54.8 % (34.0-71.1); RBC 3.25 M/uL (3.93-5.22)
[2025-02-21 05:48] LABS: ALT (SGPT) 197.0 U/L (14-59); AST (SGOT) 117.0 U/L (15-37); GLOMERULAR FILTRATION RATE,EST 34.0 mL/min (>60); PROTEIN, TOTAL 5.0 g/dL (6.4-8.2); UREA NITROGEN 42.0 mg/dL (7-18)
--- NOTE | 2025-02-21 06:00 | NUR ---
CALL LIGHT ANSWERED. PT UP TO BSC WITH FWW AND 1PA TO VOID. PT ABLE TO DO OWN BARBY CARE. GAIT WEAK. BACK TO BED, ROQUE WELL. VS AND I&O OBTAINED. COFFEE PROVIDED PER REQUEST. NO FURTHER NEEDS. CALL LIGHT IN REACH. BED ALARM FOR SAFETY.
--- NOTE | 2025-02-21 08:01 | NUR ---
RECEIVED REPORT ON PT.
[2025-02-21] MEDS ORDERED: SODIUM ZIRCONIUM CYCLOSILICATE 10 GM PACK PO ONE (08:15)
--- NOTE | 2025-02-21 08:39 | NUR ---
PATIENT SITTING UP IN BED EATING BREAKFAST. WHITE BOARD UPDATED. PATIENT WANTS TO DO AM CARE AFTER BREAKFAST AND WANTS A SHOWER LATER TODAY. CALL LIGHT IN REACH. NO FURTHER NEEDS AT THIS TIME.
--- NOTE | 2025-02-21 08:52 | NUR ---
ANSWERED PT CALL. PT REQUESTED HER COFFEE WHICH WAS OUT OF REACH. PT SITTING IN BED WATCHING. PT HAS CALL LIGHT WITH IN REACH. PT HAS NO NEEDS AT THIS TIME.
--- NOTE | 2025-02-21 08:55 | NUR ---
VISITED PT DURING SPIRITUAL CARE ROUNDS. PT IN OVERALL GOOD SPIRITS; NO IMMEDIATE NEED, REQUESTED DINING ROOM ATTENDANT VISIT AFTER MASS. ALUMINUM FABRICATION SUPERVISOR PROVIDED SUPPORTIVE PRESENCE, HOSPITALITY, PRAYER, FACILITATED INTERACTION WITH THERAPY ANIMAL, FACILITATED CONNECTION WITH ANDREIA LEADER BY COMMUNICATING REQUEST FOR VISIT. PT EXPRESSED GRATITUDE, OPENNESS TO FUTURE VISITS.
--- NOTE | 2025-02-21 09:42 | NUR ---
PATIENT UP IN CHAIR AT THIS TIME. LINENS CHANGED. AM CARE AND ORAL CARE DONE. CALL LIGHT IN REACH. NO FURTHER NEEDS AT THIS TIME.
--- NOTE | 2025-02-21 10:00 | NUR ---
Patient reports of 7/10 back/head pain. Admin oxycodone 5mg and tylenol 650mg po at this time.
[2025-02-21 10:05] LABS: HEPATITIS A ANTIBODY, IGM Negative (Negative); HEPATITIS C AB CIA INTERP Negative (Negative); HEPATITIS C ANTIBODY CIA INDEX <0.02 IV (())
--- NOTE | 2025-02-21 10:18 | NUR ---
UR CLINICAL REVIEW: MILAD[place], MEETS INPT FOR RENAL FAILURE, ACUTE CREATININE 1.86, GFR 28, MONITOR LABS, PT/OT EVAL AND TREAT SELF-PAY INPT 02/20/2025 @ 1205 ORDER MATCHES REG NO INSURANCE TO AUTH DC PLAN PENDING TREATMENT, LIKELY TO HOME 02/25/2025
--- NOTE | 2025-02-21 10:29 | NUR ---
IN WITH PATIENT, PATIENT SITTING UP IN CHAIR. PATIENT ASSISTED TO CHAIR BY PT. PATIENT ALERT AND ORIENTED X3. PATIENT REPORTS DIZZINESS WITH AMBULATION. PATIENT HAS CALL LIGHT WITH IN REACH. PT HAS NO NEEDS AT THIS TIME.
--- NOTE | 2025-02-21 13:00 | NUR ---
Spoke with Dr. Hudson. We discussed dc plan. Pt will most likely need a wc. She can pivot transfer. She did say her landlord will place a ramp for her if needed. Pt most likely will be ready for dc tomorrow or the next day. We also discussed the inconsistency in her stories. I am unsure if this is from poor memory or what. Pt has given myself, Dr. Hudson, PT, and nursing all different reason's why she did not keep her Follow Ups appts at [place]. I went to [facility]'s room to update she will most likely be ready for dc in the next 1-2 days. She is upset as she feels PT stated she did not have anything wrong with her foot. I reminded her PT came to my office after their visit. They had discussed with her, she has had poor circulation to her foot for over a year and did not keep any of her follow up visits. She then told me she couldn't keep her appointments as she did not have anyone to drive her and the office told her they would not see her without insurance. At this point I gently asked her if she wants to have further workup or if she is not interested. She confirms she wants to have treatment for her foot as it is painful. She cont. to state no office will see her without insurance and she doesn't have rides. We discussed a plan for dc and pt states she cannot walk. She does think she can use a wc and pivot transfer in her home. She states concern for her cat at [facility]. Pt does not have a wc. We discussed the cost to purchase and the option of using [employer] to borrow. She states she can have a friend pick one up for her. I will complete the form and fax after she signs. I let her know this is good for 3 months. Hopefully, after that time she will have Medicare.
--- NOTE | 2025-02-21 13:42 | NUR ---
PATIENT IN BED RESTING AT THIS TIME. VITALS DONE AND CHARTED. CALL LIGHT IN REACH. BED ALARM ON. NO FURTHER NEEDS AT THIS TIME.
--- NOTE | 2025-02-21 14:19 | NUR ---
Called and left a message for Kinjal at Eligibility to check if pt was able to be signed up for medicaid. Per speaking with pt, I believe pt spoke with Kinjal. No Medicaid numbers have been added to insurance. It is unclear if pt qualified. I left a message for Kinjal.
--- NOTE | 2025-02-21 14:20 | NUR ---
Patient in bed watching tv, no acute distress. Patient denies needs, personal supplies and call light within reach.
--- NOTE | 2025-02-21 14:22 | NUR ---
Called and spoke with [facility]. They are unable to assist pt as she would need to be scheduled for mental health service to receive help with housing. I attempted to call Joel at [facility] again and no answer. Pt updated. She will attempted to call [facility] today for assistance with housing.
--- NOTE | 2025-02-21 15:13 | NUR ---
PATIENT TALKING ON PHONE WHILE SITTING IN BED. CALL LIGHT WITH IN REACH.
--- NOTE | 2025-02-21 15:47 | NUR ---
Received a call from Mandy at [facility]. She was able to speak with Alba and she has started the process for [facility]. Per pt she plans on going home. We discussed this as pt is not able to walk. If she goes home, she will need to go with a walker. Pt needs a CG in the home. Per Mandy this clarifies a lot. She has pt scheduled for a financial and physical eval.
--- NOTE | 2025-02-21 16:17 | NUR ---
PATIENT UP TO SHOWER CHAIR, 1PA PIVOT TRANSFER. PATIENT MOSTLY INDEPENDENT IN SHOWER. BARBY CARE, SKIN CARE DONE. NEW GOWN PROVIDED. LINENS CHANGED. PATIENT NOW BACK TO BED, 1PA PIVOT TRANSFER. CALL LIGHT IN REACH. NO FURTHER NEEDS AT THIS TIME. BED ALARM ON.
--- NOTE | 2025-02-21 17:11 | NUR ---
BED MAKER ASKS FOR ASSISTANCE WITH PATIENT, PATIENT ON BEDSIDE COMMODE TRYING TO VOID. PATIENT IS COMFORTABLE WITH ME BEING THERE WHILE SHE TRIES SHE JUST FEEL UNABLE TO VOID. PT TRIED TO VOID FOR ABOUT 30 MINUTES BUT WAS NOT SUCCESSFUL. HELPED PATIENT BACK TO BED. ALONG WITH LUNA, RN PERFORMED BLADDER SCAN AND 316ML PRESENT. DOCTOR NOTIFIED OF RESULTS. PT GIVEN COCA COLA UPON REQUEST. PT SITTING UP EATING DINNER. PT HAS NO FURTHER NEEDS AT THIS TIME. CALL LIGHT WITH IN REACH.
[2025-02-21] MEDS ORDERED: SODIUM CHLORIDE 0.9% 500 ML IV SCH (17:15)
--- NOTE | 2025-02-21 17:26 | NUR ---
BACK IN WITH PATIENT TO START IV FLUIDS PER DOCTOR. PT IS FINISHING HER DINNER. PT QUESTIONING WHY WE CONTACTED THE DOCTOR. DISCUSSED WITH PATIENT THAT WE MONITOR URINE OUTPUT IN ALL OF OUR PATEINTS. PATIENT STATES "MY REGULAR DOCTOR WOULD HAVE BEEN MAD IF THIS WAS IGNORED BECAUSE HE IS WORRIED SOMETHING MIGHT BE WRONG WITH MY KIDNEYS" REASSURED PATIENT THAT THIS IV FLUID SHOULD HELP HER TO VOID, IF PATIENT HAS ANY CONCERNS OR QUESTION JUST CALL US. PATIENT HAS NO FURTHER NEEDS AT THIS TIME. CALL LIGHT WITH IN REACH.
--- NOTE | 2025-02-21 17:53 | NUR ---
PATIENT IN BED WATCHING TV AT THIS TIME. VITALS AND I&O'S DONE AND CHARTED. CALL LIGHT IN REACH. BED ALARM ON. NO FURTHER NEEDS AT THIS TIME.
--- NOTE | 2025-02-21 19:26 | NUR ---
REPORT RECEIVED FROM DAY SHIFT RN. PT LYING IN BED ALERT AND ORIENTED. DENIES NEEDS. WHITE BOARD UPDATED. CALL LIGHT IN REACH.
--- NOTE | 2025-02-21 20:37 | NUR ---
CALL LIGHT ANSWERED, pt UP SBA WITH FWW TO BSC AND BACK TO BED. VOIDED 600MLS. WHILE pt GETTING BACK INTO BED, pt VERBALIZES THAT IT FEELS LIKE HER TONGUE "IS SWOLLEN AND FEELS THICKER" AND "STINGING". IV FLUIDS CURRENTLY INFUSING (NORMAL SALINE). NO SIGNS OF EDEMA NOTED WITH INSPECTING THE pt's NECK AND TONGUE, APPEARS WNL. SLIGHT LISP NOTED. BED ALARM RESUMED AND CALL LIGHT IN REACH. PRIMARY RN BELLO MADE AWARE AND TO pt ROOM TO FURTHER ASSESS.
--- NOTE | 2025-02-21 20:45 | NUR ---
DIVINE HEALER CALL THIS RN TO PT ROOM. PT REPORTS TONGUE SWELLING WITH TONGUE FEELING "STINGY." SLIGHT LISP NOTED THAT PT REPORTS IS QUICKLY IMPROVING. NO OBVIOUS SIGNS OF SWELLING NOTED. PT DENIES SWALLOWING ISSUES. VS OBTAINED, WNL. NEURO ASSESSMENT COMPLETE. NO DEFECITS NOTED FROM PT BASELINE RIGHT LEG WEAKNESS. MD NOTIFIED. NEW TELEPHONE ORDERS RECEIVED VERIFIED WITH READBACK METHOD. BACK TO PT ROOM. PT REPORTS SX QUICKLY RESOLVING WITH JUST A SLIGHT "STINGING" FEELING IN THE MIDDLE OF HER TONGUE. SPEECH APPEARS BASELINE AT THIS TIME, NO LISP NOTED.
[2025-02-21] MEDS ORDERED: phenoL 177 ML SPRAY MT PRN (21:00)
--- NOTE | 2025-02-21 21:23 | NUR ---
IV PUMP ALARMING, INFUSION COMPLETE. PT SL. WARM BLANKET PROVIDED PER REQUEST. SPEECH CLEAR AT THIS TIME. PT REPORTS "STINGING" IN TONGUE IMPROVING. NO FURTHER NEEDS.
--- NOTE | 2025-02-21 21:54 | NUR ---
EVENING ASSESSMENT COMPLETE. SCHEDULED MEDS ADMIN PER EMAR. PT REPORTS BACK/HEADACHE PAIN 02/12. PRN FOR PAIN ADMIN PER EMAR. NO SWALLOWING ISSUES NOTED. PT REPORTS SLIGHT "STINGY" FEELING IN THE MIDDLE OF HER TONGUE. SPEECH CLEAR, NO LISP NOTED. ASSISTED TO REPOSITION IN BED WITH PILLOWS. PT DENIES QUESTIONS OR CONCERNS. CALL LIGHT IN REACH. BED ALARM FOR SAFETY.
--- NOTE | 2025-02-21 23:45 | NUR ---
PT RESTING IN BED WITH EYES CLOSED. RESPIRATIONS EVEN. CALL LIGHT IN REACH. BED ALARM FOR SAFETY.
[2025-02-22] VITALS (10 sets, daily range): BP systolic 107–120; BP diastolic 41–58
--- NOTE | 2025-02-22 00:48 | NUR ---
PT RESTING IN BED WITH EYES CLOSED. RESPIRATIONS EVEN. CALL LIGHT IN REACH.
--- NOTE | 2025-02-22 03:13 | NUR ---
PT AWAKE IN BED. UP TO BSC WITH FWW AND SBA TO VOID 400 ML YELLOW URINE. GAIT STEADY. TTWB RLE. BACK TO BED, ROQUE WELL. PRN FOR PAIN ADMIN FOR 8/10 BACK/RLE PAIN. ASSESSMENT UNCHANGED. ASSISTED TO REPOSITION WITH PILLOWS. NO FURTHER NEEDS.
[2025-02-22 05:37] LABS: BASOPHILS 0.4 % (0.1-1.2); EOSINOPHILS 3.4 % (0.7-5.8); LYMPHOCYTES 27.1 % (19.3-51.7); MCH 32.3 PG (25.6-32.2); MCHC 33.5 g/dL (32.2-35.5); MCV 96.6 fL (79.4-94.8); MONOCYTES 6.9 % (4.7-12.5); NEUTROPHILS 61.9 % (34.0-71.1); RBC 2.91 M/uL (3.93-5.22)
[2025-02-22 05:57] LABS: ALT (SGPT) 177.0 U/L (14-59); AST (SGOT) 119.0 U/L (15-37); GLOMERULAR FILTRATION RATE,EST 33.0 mL/min (>60); PROTEIN, TOTAL 4.7 g/dL (6.4-8.2); UREA NITROGEN 33.0 mg/dL (7-18)
--- NOTE | 2025-02-22 06:55 | NUR ---
PT AWAKE IN BED. SCHEDULED MEDS ADMIN PER EMAR. NO C/O PAIN AT THIS TIME. PT DENIES NEEDS. CALL LIGHT IN REACH.
--- NOTE | 2025-02-22 08:50 | NUR ---
Patient awake, alert and oriented x3, no acute distress. Patient eating breakfast at this time, tolerating well. Patient reports 7/10 head and right leg pain. Admin oxycodone 5mg and tylenol 650mg po at this time. Bed alarm intct, no current needs.
--- NOTE | 2025-02-22 11:30 | NUR ---
Spoke with Alba. She is up in the chair. Discussed needs. Pt has a list of DME PT/OT had suggested. List included Wc, walker, commode, shower bench, and sock assist. I had sent a form to [employer] requesting a wc yesterday. I added the others, except the commode as pt does not want to clean, and faxed again today. Per pt, her landlord is building her a ramp today. She again has stated her friend Hernando will miner pick her DME. He drives the taxi and transports pt from the hospital. I called Hernando to confirm him is will to assist this pt with a ride home and pick her DME. Her friend, Hernando, will stop at [facility] and miner pick DME tomorrow. Pt denies other needs. Dr. Hudson updated and pts Echo reportis not back. He will plan for dc tomorrow.
--- NOTE | 2025-02-22 13:29 | NUR ---
PATIENT SAT UP IN THEIR CHAIR FOR LUNCH. SBA PIVOT BACK INTO BED. DOCTOR ENTERED THE ROOM.
--- NOTE | 2025-02-22 14:18 | NUR ---
PT C/O PAIN TO HEAD, BACK AND LEG. PT MEDICATED WITH OXYCODONE & TYLENOL. PT ALSO REQUESTING TO HAVE COMBINE OPERATOR SALAD. DIETARY CALLED AND TRAY DELIVERED.
--- NOTE | 2025-02-22 15:17 | NUR ---
IN TO CHECK ON PT, PT SITTING IN BED. PT REPORTS SHE IS FINISHED WITH FOOOD. PT REPORTS THE DOCTOR THINKS SHE WILL BE ABLE TO GO HOME TOMORROW IF SHE CONTINUES TO IMPROVE. PT IS VERY PLEASED BY THIS. PT REQUESTING TO BE REPOSITIONED, PLACED PILLOW UNDER PT'S RIGHT SIDE AND ROLLED A RAG UP AND PLACED UNDER RIGHT HEEL. PT REQUESTING HER CELL PHONE FROM TABLE WHERE IT HAS BEEN CHARGING. PT WITH BED RAILS UP, CALL LIGHT AND PERSONAL BELONGINGS WITH IN REACH. PT HAS NO FURTHER NEEDS AT THIS TIME.
--- NOTE | 2025-02-22 17:11 | NUR ---
PT SITTING UP IN BED EATING DINNER. PT HAS NO NEEDS AT THIS TIME. CALL LIGHT WITHIN REACH.
--- NOTE | 2025-02-22 21:56 | NUR ---
PT IN BED, ASSESSMENT DONE, DUE MEDICATIONS GIVEN, PT C/O OF 810 HEADACHE, TYLENOL PRN GIVEN. DENIES NEEDS, CALL LIGHT IN REACH.
--- NOTE | 2025-02-22 22:47 | NUR ---
CALL LIGHT ANSWERED. PATIENT TEARFUL, REPORTS SIGNIFICANT PAIN. PRN PAIN MEDICATION ADMINISTERED PER REQUEST. SHE REQUESTED TO GET UP TO CHAIR TO GET INTO A MORE COMFORTABLE POSITION. PATIENT AMBULATED TO CHAIR USING FWW AND X2 PERSON ASSIST. CHAIR ALARM ON. RESPIRATIONS EVEN AND UNLABORED, CALL LIGHT AND PERSONAL BELONGINGS IN REACH.
--- NOTE | 2025-02-22 23:51 | NUR ---
PT SLEEPING ON THE RECLINER, RESPIRATIONS EVEN AND UNLABORED. NO NEEDS NOTED AT THIS TIME. CALL LIGHT IN REACH.
--- NOTE | 2025-02-23 02:00 | NUR ---
PT ASLEEP ON THE RECLINER. RESPIRATIONS EVEN AND UNLABORED. NO NEEDS NOTED AT THIS TIME. CALL LIGHT IN REACH.
--- NOTE | 2025-02-23 03:43 | NUR ---
PT ASLEEP ON THE RECLINER. RESPIRATIONS EVEN AND UNLABORED. NO NEEDS NOTED AT THIS TIME. CALL LIGHT IN REACH.
[2025-02-23 05:32] VITALS: BP 116/97
[2025-02-23 05:35] VITALS: BP 116/97
[2025-02-23 05:50] LABS: BASOPHILS 0.5 % (0.1-1.2); EOSINOPHILS 3.6 % (0.7-5.8); LYMPHOCYTES 37.0 % (19.3-51.7); MCH 32.1 PG (25.6-32.2); MCHC 33.6 g/dL (32.2-35.5); MCV 95.6 fL (79.4-94.8); MONOCYTES 5.8 % (4.7-12.5); NEUTROPHILS 52.7 % (34.0-71.1); RBC 3.18 M/uL (3.93-5.22)
[2025-02-23 06:05] LABS: ALT (SGPT) 185.0 U/L (14-59); AST (SGOT) 134.0 U/L (15-37); GLOMERULAR FILTRATION RATE,EST 40.0 mL/min (>60); PROTEIN, TOTAL 5.6 g/dL (6.4-8.2); UREA NITROGEN 28.0 mg/dL (7-18)
--- NOTE | 2025-02-23 06:13 | NUR ---
PT UP TO COMMODE WITH X2 ASSIST WITH FWW. PT VOIDED 200ML X1 THIS SHIFT. BLADDER SCAN SHOWED 267ML. PT STILL REPORTS RLE PAIN, PRN MEDICATION GIVEN. VITAL SIGNS TAKEN AND RECORDED, INTAKE AND OUTPUT RECORDED. DENIES FURTHER NEEDS. CALL LIGHT IN REACH.
--- NOTE | 2025-02-23 06:27 | NUR ---
PT RESTING IN BED. DUE MEDICATION GIVEN ORDERED. DENIES PAIN OR NAUSEA. TOLERATED PO INTAKE. DENIES NEEDS, CALL LIGHT IN REACH.
--- NOTE | 2025-02-23 07:13 | NUR ---
REPORT RECEIVED FROM LOW PRESSURE FIRER RICHARDSON MILLS. PATIENT IS LYING IN BED WITH HOB ELEVATED. PATIENT WITH EYES OPEN AND RESPIRATIONS ARE EVEN AND UNLABORED. CALL LIGHT AND PERSONAL BELONGINGS ARE WITHIN REACH.
[2025-02-23] MEDS ORDERED: MAGNESIUM SULFATE 2 GM/50 ML BAG IV ONE (09:00)
--- NOTE | 2025-02-23 09:14 | NUR ---
ERICA HUGGINS AND ERICA SHEPPARD ARE IN THE ROOM AT THIS TIME. PATIENT IS SITTING ON THE COMMODE.
--- NOTE | 2025-02-23 09:20 | NUR ---
PATIENT IN BED AT THIS TIME. PLANT MANAGER ASSISTED PATIENT TO BEDSIDE COMMODE AND THEN BACK TO BED. CALL LIGHT WITHIN REACH, NO FURTHER NEEDS AT THIS TIME.
[2025-02-23 09:40] VITALS: BP 122/42
--- NOTE | 2025-02-23 10:07 | NUR ---
VISITED DURING SPIRITUAL CARE ROUNDS. PT IN OVERALL GOOD SPIRITS, NO IMMEDIATE NEEDS. CONVERSATION CENTERED ON CONCERNS AROUND GENERAL WEEKNESS AND ABILITY TO TAKE CARE OF ERRANDS AND TASKS, EXPLORED ANDREIA AND [place]. ASSISTANT FEDERAL PUBLIC DEFENDER PROVIDED SUPPORTIVE PRESENCE, HOSPITALITY, PRAYER, ENCOURAGED FOCUS ON PRESENT. PT EXPRESSED GRATITUDE, HOPE.
--- NOTE | 2025-02-23 10:25 | NUR ---
PATIENT IS LYING IN BED WITH HOB ELEVATED. PATIENT WITH EYES OPEN AND RESPIRATIONS ARE EVEN AND UNLABORED. CALL LIGHT AND PERSONAL BELONGINGS ARE WITHIN REACH.
[2025-02-23 10:48] VITALS: BP 122/42
--- NOTE | 2025-02-23 10:49 | NUR ---
PATIENT SAID THE NEXT TIME SHE CALLS TO GO TO THE BATHROOM SHE WILL GO IN AND DO HER AM CARE. I ALSO ASKED HER ABOUT A SHOWER AND SHE SAID SHE WILL THINK ABOUT IT.
--- NOTE | 2025-02-23 11:05 | NUR ---
PATIENT IS LYING IN BED WITH HOB ELEVATED. PATIENT WITH EYES OPEN AND RESPIRATIONS ARE EVEN AND UNLABORED. PATIENT IS ON ROOM AIR AND LUNG SOUNDS ARE CLEAR THROUGHOUT. PATIENT WITH MURMUR HEARD ON AUSCULTATION. PEDAL PULSES ARE FAINT AND THE FEET ARE COOL TO THE TOUCH. IV SITE SALINE LOCKED AND THE DRESSING IS CLEAN, DRY, AND INTACT. NO EDEMA NOTED. SKIN WITH SCATTERED BRUISING NOTED. GENERALIZED WEAKNESS TO THE BLE NOTED. PATIENT REPORTED PAIN 7/10 IN THE HEAD AND BACK AND IS REQUESTING SOMETHING FOR PAIN WHEN IT IS AVAILABLE. PATIENT STATED NO FURTHER NEEDS AT THIS TIME. CALL LIGHT AND PERSONAL BELONGINGS ARE WITHIN REACH.
--- NOTE | 2025-02-23 13:52 | NUR ---
PT SITTING AT EDGE OF BED, FACING WINDOW. PHONE IN HAND. RR EVEN AND UNLABORED. CALL LIGHT AND PERSONAL BELONGINGS IN REACH.
[2025-02-23 14:04] VITALS: BP 118/78
[2025-02-23 14:25] VITALS: BP 118/78
--- NOTE | 2025-02-23 14:45 | NUR ---
In pts room updating Hernando is running late. Pt states her cane that was her mother and has sentimental value has been misplaced. I let her know this is odd as I saw her and discussed her needs. She did not have a cane with her. She then states someone came and took it home.
--- NOTE | 2025-02-23 15:08 | NUR ---
PATIENT IS SITTING IN THE WHEELCHAIR IN HER ROOM WAITING FOR HER RIDE. PATIENT WITH EYES OPEN AND RESPIRATIONS ARE EVEN AND UNLABORED.
--- NOTE | 2025-02-23 15:20 | NUR ---
Notified by Hernando he is on his way. He has picked up the wc, walker, and shower bench for this pt. Another emergency detail driver will transport her home. Met Hernando at the front of the hospital to bring DME from [place] to pts room. Assisted staff to adjust walker. Hernando left and ask we call him and he will send another emergency detail driver to transport Alba when sheis ready.
--- NOTE | 2025-02-23 15:55 | NUR ---
Texted Hernando asking him to send the form setter/driver. Pt taken to front in wc from [employer]. Pt has the walker from [employer] with her.
== END 2025-02-23 15:45 | disposition home or self-care (01) | DRG 682 ==
LOC: ED 02:53 → MS 09:37
PROVIDERS: Internal Medicine; ADMIT Student in an Organized Health Care Education/Training Program; ATTEND Student in an Organized Health Care Education/Training Program
DX: N17.9 Acute kidney failure, unspecified (principal); E43 Unspecified severe protein-calorie malnutrition; S06.0X9A Concussion with loss of consciousness of unspecified duration, initial encounter; Z68.1 Body mass index [BMI] 19.9 or less, adult; R74.01 Elevation of levels of liver transaminase levels; G89.29 Other chronic pain; M54.9 Dorsalgia, unspecified; Z66 Do not resuscitate; E83.42 Hypomagnesemia; I25.10 Atherosclerotic heart disease of native coronary artery without angina pectoris; I70.201 Unspecified atherosclerosis of native arteries of extremities, right leg; I10 Essential (primary) hypertension; J44.89 Other specified chronic obstructive pulmonary disease; I25.2 Old myocardial infarction; W18.39XA Other fall on same level, initial encounter; Y92.009 Unspecified place in unspecified non-institutional (private) residence as the place of occurrence of the external cause; Z60.2 Problems related to living alone; Z79.02 Long term (current) use of antithrombotics/antiplatelets; Z79.51 Long term (current) use of inhaled steroids; Z88.0 Allergy status to penicillin; Z79.891 Long term (current) use of opiate analgesic; Z87.891 Personal history of nicotine dependence; Z95.5 Presence of coronary angioplasty implant and graft
CPT/HCPCS: 36415; 51798; 70450; 71045; 72125; 72170; 76705; 80053; 80074; 81001; 83690; 83735; 83880; 84484; 85025; 90715; 93005; 93010; 93306; 93925; 97162; 97166; 97530; 97535; A9270; G0480; J1644; J2405; J3475; J7040